=== PATIENT | female | born 1980 | race Caucasian/White ===

== ENCOUNTER → 2017-06-25 15:27 | Outpatient (CLI) | payer OTHER, SELFPAY ==
--- NOTE | 2017-06-25 15:31 | MRI_ITS ---
STUDY: MRI CERVICAL SPINE WITHOUT CONTRAST REASON FOR EXAM: Female, 36 years old. Neck pain TECHNIQUE: Standardized fat and water weighted pulse sequences were obtained in the sagittal and axial planes. COMPARISON: None FINDINGS: Normal foramen magnum and brainstem-cervical cord junction. Normal craniovertebral junction. Normal anterior atlantoaxial articulation. Normal odontoid process. Normal cervical lordosis. Normal vertebral bodies and posterior osseous elements. C2-3: Normal endplates. Normal disc height, signal and morphology. Normal central canal and intervertebral neural foramina. C3-4: Normal endplates. Normal disc height, signal and morphology. Normal central canal and intervertebral neural foramina. C4-5: Normal endplates. Normal disc height, signal and morphology. Normal central canal and intervertebral neural foramina. C5-6: Normal endplates. Normal disc height, signal and tiny right posterolateral disc protrusion. Normal central canal and intervertebral neural foramina. C6-7: Normal endplates. Normal disc height, signal and morphology. Normal central canal and intervertebral neural foramina. C7-T1: Normal endplates. Normal disc height, signal and morphology. Normal central canal and intervertebral neural foramina. Normal cervical cord. Normal visualized soft tissue structures. MRI/Spine Cervical (Routine) IMPRESSION: Tiny right posterolateral disc protrusion at C5-6 without significant spinal stenosis or cord compression Straightening of normal lordotic curvature which may be consistent with positioning artifact. No evidence for acute fracture.. Electronically Signed: Farhad Rm MD at 17:16 EDT , Service support ,
== END ==
PROVIDERS: Family Provider Nurse Practitioner Family; PCP Nurse Practitioner Family
DX: M47.812 Spondylosis without myelopathy or radiculopathy, cervical region (principal)
CPT/HCPCS: 72141

== ENCOUNTER → 2017-09-26 09:39 | Outpatient (CLI) | payer OTHER, SELFPAY ==
--- NOTE | 2017-09-26 09:41 | US_ITS ---
STUDY: ABDOMINAL ULTRASOUND - RIGHT UPPER QUADRANT REASON FOR VISIT: Female, 37 years old. Elevated liver enzymes. TECHNIQUE: Ultrasound evaluation of the right upper quadrant was performed with real-time and static barkley-scale imaging. TECHNICAL QUALITY: Adequate. COMPARISON: Comparison is made with prior study dated November 02, 2009. FINDINGS: Liver: The liver measures 16 point cm. There is increased echogenicity consistent with fatty infiltration. The bile ducts are within normal limits. There is hepatic color flow. The direction of portal flow is hepatopetal. There is no demonstrated mass lesion. Gallbladder: The patient is status post cholecystectomy. Common Bile Duct (C.B.D.): The common bile duct measures 3.8 mm. Pancreas: Normal size of the head, body and tail of the pancreas. There is normal echogenicity of the pancreas. There is no demonstrated pancreatic mass or cyst. Right Kidney: Normal size of the right kidney. The right kidney measures 12.2 cm x 4.4 cm x 5.5 cm. Normal renal cortex. The right cortex measures 1.9 cm. There is no demonstrated renal mass or cyst. There is no right hydronephrosis. US/Liver IMPRESSION: Fatty infiltration of the liver. Prior cholecystectomy. Electronically Signed: Jeramie Basilio MD at 14:25 EDT Tel [phone], Service support ,
== END ==
PROVIDERS: Family Provider Nurse Practitioner Family; PCP Nurse Practitioner Family; Visit Provider Internal Medicine Rheumatology
DX: R74.8 Abnormal levels of other serum enzymes (principal)
CPT/HCPCS: 76705

== ENCOUNTER → 2017-10-17 09:34 | Outpatient (CLI) | payer OTHER, SELFPAY ==
[2017-10-17 12:25] LABS: Color, Urine Yellow (Yellow); Glucose, Dipstick Normal (Normal); Ketone-Dipstick 5 mg/dl (Negative); Leukocyte Esterase-Dipstick 500 /ul (Negative); Nitrite-Dipstick Negative (Negative); Occult Blood-Urine Negative /ul (Negative); Protein-Dipstick 15 mg/dl (Negative); Specific Gravity, Urine 1.015 (1.002-1.030); Urine Bilirubin Dipstick Negative (Negative); Urine Clarity Sl. Cloudy (Clear); Urine Urobilinogen Normal (Normal); Urine pH 6.5 (5.0 - 8.0)
[2017-10-17 12:26] LABS: ALB/GLOB Ratio 1.1 RATIO (0.9-2.4); AST(SGOT) 29 U/L (15-37); Alanine Aminotransfer ALT/SGPT 47 U/L (13-56); Albumin, Serum 3.9 g/dL (3.2-5.0); Alkaline Phosphatase 70 U/L (45-117); Anion Gap 8 (5-15); BUN 11 mg/dL (7-18); BUN/Creat Ratio 14.3 RATIO (10-20); Calcium,Total 9.1 mg/dL (8.5-10.1); Chloride 107 mmol/L (98-107); Creatinine, Serum 0.77 mg/dL (0.55-1.02); EST Glomerular Filtration Rate 91 mL/min (>60); Est Glom Filt Rate - Afr Amer 110 mL/min (>60); Globulin 3.7 g/dL (2.2-4.2); Glucose 91 mg/dL (74-106); Potassium 3.5 mmol/L (3.5-5.1); Protein, Total 7.6 g/dL (6.4-8.2); Sodium Level 141 mmol/L (136-145)
[2017-10-17 12:37] LABS: Protein, Urine (Random) 29.2 mg/dL (<11.9); Protein:Creat Ratio 122 mg/g CRE (0-200)
== END ==
PROVIDERS: Family Provider Nurse Practitioner Family; PCP Nurse Practitioner Family; Visit Provider Internal Medicine Rheumatology
DX: M06.4 Inflammatory polyarthropathy (principal); M79.7 Fibromyalgia; M21.40 Flat foot [pes planus] (acquired), unspecified foot; K21.9 Gastro-esophageal reflux disease without esophagitis; G43.909 Migraine, unspecified, not intractable, without status migrainosus; F41.9 Anxiety disorder, unspecified; E28.2 Polycystic ovarian syndrome
CPT/HCPCS: 36415; 80053; 81002; 82570; 84156

== ENCOUNTER 2018-01-14 10:08 | Emergency (ER) | payer OTHER, SELFPAY ==
[2018-01-14 10:10] VITALS: BP 131/87; PULSE 91; RESP 18; TEMP 36.6; O2SAT 97; BMI 44.2
--- NOTE | 2018-01-14 10:41 | RAD_ITS ---
STUDY: X-RAY CHEST REASON FOR EXAM: Female, 37 years old. Productive cough. TECHNIQUE: PA and lateral views of the chest. COMPARISON: None. FINDINGS: The lungs are clear and expanded. There is no demonstrated pleural abnormality. Normal size heart. Normal mediastinum and starr. Normal visualized pulmonary arteries. Normal visualized aortic arch and descending thoracic aorta. Normal visualized thoracic spine. Normal visualized ribs, clavicles, and shoulders. There is no demonstrated abnormality of the visualized soft tissue structures of the upper abdomen. RAD/Chest PA and Lateral IMPRESSION: Normal x-ray examination of the chest. Electronically Signed: Jeramie Basilio MD at 11:24 EDT Tel [phone], Service support ,
--- NOTE | 2018-01-14 10:42 | ED.VISSUMM ---
- ER Visit Summary Date of Service: 01/14/18 Chief Complaint: Cough with green phlegm History of Present Illness: The patient is a 37 F history of rheumatoid arthritis, reflux, fibromyalgia, chronic pain and anxiety. Patient states since Friday she developed bilateral ear discomfort nasal congestion and a cough of greenish sputum. Also some nausea vomiting and diarrhea. She denies any fever. She denies any shortness of breath. She was treated by her nurse practitioner who put her on a Z-Clark. She states no chest x-ray was ever done. Physical Examination: Well-appearing young female. Vital signs are stable. Afebrile. Pulse ox 95% on room air no signs of hypoxia. No distress. H EENT exam TMs are normal bilaterally. Nasal congestion but no purulent discharge. No frontal maxillary sinus tenderness. Moist mucous membranes. Posterior pharynx normal. No erythema or exudate. Neck nontender no lymphadenopathy. Lungs clear to auscultation bilaterally. No rales, rhonchi or wheezing. Dry cough. Heart regular rate and rhythm no murmur. Abdomen peritoneal signs. She is moving all 4 extremities. They are neurovascularly intact. Calves are nontender without edema or cords. Back exam normal. Neurologically she is awake and alert with no focal motor deficits. Test Results: Patient requested a 2 view chest x-ray was performed showed no acute abnormality. Normal cardiac silhouette. Normal lung cadet. Emergency Department Course and Treatment: Patient's exam and history are consistent with a viral syndrome. I explained to her the Z-Clark that she is currently on will do nothing for a virus. Treatment Plan: Fluids and rest. Tylenol Motrin as needed. Follow-up with your doctor as needed. Disposition: Discharge Impression: Acute viral syndrome This note was generated with [employer] dictation software. It may contain incorrect words, spelling, and punctuation that were not noted in review of the chart prior to signing ED Disposition - Plan for ED Patient: Disposition: Home or Assisted Living Chief Complaint: General Illness Instructions: ED Viral Syndrome Referrals: Yasmin Krishna NP-C [Primary Care Provider] - 10-14 Days if not better Additional Instructions: Plenty of fluids and rest. Tylenol Motrin for body aches. Zofran as needed for nausea.
--- NOTE | 2018-01-14 10:45 | ED.DEP ---
ED Disposition - Plan for ED Patient: Disposition: Home or Assisted Living Chief Complaint: General Illness Instructions: ED Viral Syndrome Prescriptions: Ondansetron [Zofran Odt] 4 mg PO Q4H PRN PRN #7 tab.rapdis PRN Reason: Nausea Referrals: Yasmin Krishna, CAP JEWEL PLATE ASSEMBLER-C [Primary Care Provider] - 10-14 Days if not better Additional Instructions: Plenty of fluids and rest. Tylenol Motrin for body aches. Zofran as needed for nausea.
[2018-01-14] MEDS: Ondansetron ODT 4 MG Tablet PO (10:50)
--- NOTE | 2018-01-14 10:57 | DCINST.ED_ITS ---
ED Disposition - Plan for ED Patient: Disposition: Home or Assisted Living Chief Complaint: General Illness Instructions: ED Viral Syndrome Prescriptions: Ondansetron [Zofran Odt] 4 mg PO Q4H PRN PRN #7 tab.rapdis PRN Reason: Nausea Referrals: Yasmin Krishna, BREWING DIRECTOR-C [Primary Care Provider] - 10-14 Days if not better Additional Instructions: Plenty of fluids and rest. Tylenol Motrin for body aches. Zofran as needed for nausea.
[2018-01-14 11:33] VITALS: BP 117/81; PULSE 87; RESP 16; O2SAT 98
== END 2018-01-14 11:34 | disposition home or self-care (01) ==
LOC: ED 11:05
PROVIDERS: Emergency Provider Emergency Medicine; Family Provider Nurse Practitioner Family; PCP Nurse Practitioner Family
DX: B34.9 Viral infection, unspecified (principal); M06.9 Rheumatoid arthritis, unspecified; K21.9 Gastro-esophageal reflux disease without esophagitis; M79.7 Fibromyalgia; F41.9 Anxiety disorder, unspecified; G89.29 Other chronic pain; Z79.2 Long term (current) use of antibiotics; Z79.899 Other long term (current) drug therapy
CPT/HCPCS: 71046; 99283

== ENCOUNTER → 2018-03-04 14:15 | Outpatient (CLI) | payer OTHER, SELFPAY ==
--- NOTE | 2018-03-04 | EMB_PTH ---
PATIENT: MAGED CALLAWAY LOC: [facility] U#:[id number] AGE/SX: 44/F ROOM: RE03/04/[address]: Dr. Vj Alexander MD : 1980 BED: DIS: SPEC #: [id number] RECD: 03/04/18 15:46 STATUS: IBETH KRYSTAL #: [id number] EFFIE: 03/04/18 00:[address]: Vj Alexander DEPT: SURGICAL PATHOLOGY RECD BY: Rod Maldonado ENTERED: 03/05/18 08:00 SP TYPE: ENDOFernando BX/C SATHYA DR: Yasmin Krishna, RICK-C Tissues: Endometrium, NOS Procedures: Surgery Specimen Level IV HEADER OPERATION: Endometrial biopsy PRE-OP DIAGNOSIS: Menorrhagia TISSUE SUBMITTED: Endometrial biopsy MICROSCOPIC DIAGNOSIS Endometrium, biopsy: Secretory endometrium. AM:jace 03/06/18 MICROSCOPIC DESCRIPTION Slides are reviewed. GROSS DESCRIPTION Received is one container labeled with the patient's name and not further designated. The specimen consists of multiple irregular fragments of oeet-qka-jjlic mucoid tissue that in aggregate measure 3 x 1.2 x 0.2 cm. The specimen is totally submitted in one cassette. / RY:jace 03/05/18 TC:5 CPT: 66608
[2018-03-07 11:37] LABS: HPV Reflexed? NOT INDICATED
== END ==
PROVIDERS: Family Provider Nurse Practitioner Family; PCP Nurse Practitioner Family; Referring Provider Obstetrics & Gynecology; Visit Provider Obstetrics & Gynecology
DX: N92.0 Excessive and frequent menstruation with regular cycle (principal); Z12.4 Encounter for screening for malignant neoplasm of cervix
CPT/HCPCS: 87624; 88175; 88305; G0145

== ENCOUNTER → 2018-04-29 09:45 | Outpatient (CLI) | payer OTHER, SELFPAY ==
[2018-04-29 12:11] LABS: Absolute Lymphocyte Count 1.72 X10^3/ul (0.83-4.51); Absolute Neutrophil Count 3.1 X10^3/uL (2.0-7.7); Basophil# 0.03 X10^3/uL; Basophil% 0.6 % (0-1); Eosinophils% 1.9 % (0-5); Hematocrit 37.7 % (37-47); Hemoglobin 11.7 g/dl (12.0-15.0); Lymphocyte # 1.72 X10^3/ul (4.0); Lymphocyte % 31.9 % (19-41); Mean Corpuscular Hgb 24.6 pg (27.0-32.0); Mean Corpuscular Volume 79.2 fL (81-99); Mean Platelet Vol. 12.3 fl (6.2-12.0); Monocyte# 0.47 X10^3/uL; Monocyte% 8.7 % (0-10); Neutrophil # 3.07 X10^3/uL (2.7-7.7); Neutrophil % 56.7 % (47-70); Platelet Count 294 K/mm3 (150-450); RBC Distribution Width CV 15.7 % (11.6-14.6); RBC Distribution Width SD 44.5 fl (35.1-43.9); Red Blood Count 4.76 M/mm3 (4.2-5.4); White Blood Count 5.4 K/mm3 (4.4-11.0)
[2018-04-29 12:16] LABS: POSITIVE COUNT NO; POSITIVE DIFFERENTIAL NO; POSITIVE MORPHOLOGY NO
[2018-04-29 12:25] LABS: AST(SGOT) 17 U/L (15-37); Alanine Aminotransfer ALT/SGPT 35 U/L (13-56); Albumin, Serum 3.8 g/dL (3.2-5.0); Alkaline Phosphatase 75 U/L (45-117); Anion Gap 6 (5-15); BUN 13 mg/dL (7-18); BUN/Creat Ratio 17.5 RATIO (10-20); Calcium,Total 8.8 mg/dL (8.5-10.1); Chloride 108 mmol/L (98-107); Creatinine, Serum 0.74 mg/dL (0.55-1.02); EST Glomerular Filtration Rate 94 mL/min (>60); Est Glom Filt Rate - Afr Amer 114 mL/min (>60); Globulin 3.7 g/dL (2.2-4.2); Glucose 100 mg/dL (74-106); Potassium 3.6 mmol/L (3.5-5.1); Protein, Total 7.5 g/dL (6.4-8.2); Sodium Level 140 mmol/L (136-145)
== END ==
PROVIDERS: Family Provider Family Medicine; PCP Family Medicine; Referring Provider Internal Medicine Rheumatology; Visit Provider Internal Medicine Rheumatology
DX: M06.4 Inflammatory polyarthropathy (principal); M79.7 Fibromyalgia; K76.0 Fatty (change of) liver, not elsewhere classified; M21.40 Flat foot [pes planus] (acquired), unspecified foot; K21.9 Gastro-esophageal reflux disease without esophagitis; G43.909 Migraine, unspecified, not intractable, without status migrainosus; F41.9 Anxiety disorder, unspecified; E28.2 Polycystic ovarian syndrome
CPT/HCPCS: 36415; 80053; 85025

== ENCOUNTER → 2018-05-06 16:36 | Outpatient (CLI) | payer OTHER, SELFPAY ==
--- NOTE | 2018-05-06 16:43 | RAD_ITS ---
STUDY: X-RAY CHEST REASON FOR EXAM: Female, 37 years old. Rheumatoid arthritis TECHNIQUE: Frontal and lateral views COMPARISON: January 14, 2018. FINDINGS: The lungs are clear and expanded. There is no demonstrated pleural abnormality. Normal size heart. Normal mediastinum and starr. Normal visualized pulmonary arteries. Normal visualized aortic arch and descending thoracic aorta. Normal visualized thoracic spine. Normal visualized ribs, clavicles, and shoulders. There is no demonstrated abnormality of the visualized soft tissue structures of the upper abdomen. RAD/Chest PA and Lateral IMPRESSION: Normal x-ray examination of the chest. Electronically Signed: William Mariee DO at 22:54 EST Tel [phone], Service support ,
[2018-05-08 20:08] LABS: QNTFERON TB Mitogen Value > 10.00 IU/mL (.); QNTFERON TB Nil Value 0.02 IU/mL (.); QNTFERON TB1+ Ag Value 0.03 IU/mL (.); QNTFERON TB2+ Ag Value 0.02 IU/mL (.)
[2018-05-09 11:09] LABS: QNTIFERON TB Positive Criteria Negative (Negative)
== END ==
PROVIDERS: Family Provider Family Medicine; PCP Family Medicine; Referring Provider Internal Medicine Rheumatology; Visit Provider Internal Medicine Rheumatology
DX: M06.09 Rheumatoid arthritis without rheumatoid factor, multiple sites (principal); M79.7 Fibromyalgia; K76.0 Fatty (change of) liver, not elsewhere classified; M21.40 Flat foot [pes planus] (acquired), unspecified foot; K21.9 Gastro-esophageal reflux disease without esophagitis; G43.909 Migraine, unspecified, not intractable, without status migrainosus; F41.9 Anxiety disorder, unspecified; E28.2 Polycystic ovarian syndrome
CPT/HCPCS: 36415; 71046; 86480

== ENCOUNTER 2018-06-22 05:55 | Day surgery (SDC) | payer OTHER, SELFPAY ==
--- NOTE | 2018-06-17 16:38 | EKG12_ITS ---
Test Reason : PRE OP Blood Pressure : / mmHG Vent. Rate : 078 BPM Atrial Rate : 078 BPM P-R Int : 152 ms QRS Dur : 102 ms QT Int : 400 ms P-R-T Axes : 048 028 052 degrees QTc Int : 456 ms Normal sinus rhythm Incomplete right bundle branch block Borderline ECG No previous ECGs available Confirmed by MADAY BLOUNT, MAYRA ([id number]), magazine editor RADHA ARTEAGA ([id number]) on 06/19/2018 9:41:45 AM Referred By: Vj Alexander Confirmed By:MAYRA NASSAR MD
[2018-06-17 17:34] LABS: Hematocrit 37.9 % (37-47); Hemoglobin 11.5 g/dl (12.0-15.0); Mean Corp Hgb Conc 30.3 g/gl (32-36); Mean Platelet Vol. 11.9 fl (6.2-12.0); Platelet Count 290 K/mm3 (150-450); RBC Distribution Width CV 16.3 % (11.6-14.6); RBC Distribution Width SD 46.3 fl (35.1-43.9); White Blood Count 5.6 K/mm3 (4.4-11.0)
[2018-06-17 17:50] LABS: Scan Indicated on CBC? Y/N NO
[2018-06-17 17:51] LABS: International Normalized Ratio 1.1; Prothrombin Time (Protime)PT. 13.8 SECONDS (11.7-14.9)
[2018-06-17 17:52] LABS: Partial Thromboplast Time 37.4 Seconds (24.1-36.2)
[2018-06-17 18:37] LABS: Pregnancy, Serum, hCG Quali. NEGATIVE Negative (0-9 Nonpreg)
[2018-06-17 18:45] LABS: Thyroid Stim Hormone (TSH) 1.62 uIU/mL (0.358-3.74)
--- NOTE | 2018-06-19 16:10 | HP.PCM_ITS ---
History and Physical Date of Admission: 06/22/18 Surgical History and Physical Nichole Frias, a 37 year old female 1 0 0 0 1, presents for D and C, hysteroscopy, L/S bilateral salpingectomy and HTA on June 22, 2018 at 7:30. -- Menorrhagia; Desires Sterilization -- Irregular and heavy menstrual cycles. Nichole claims it is getting progressively getting worse. It occurs monthly. It is located in the uterus. It is aggravated by intercourse and tampons are uncomfortable. Additional comments are: extremely heavy menses and just wants it to stop. MEDICATIONS HISTORY: Patient is also takin. Cymbalta 30 mg capsule,delayed release, One pill by mouth once a day 2. Plaquenil 200 mg tablet, One pill by mouth once a day 3. Prilosec OTC 20 mg tablet,delayed release, 40mg once daily 4. Topamax 50 mg tablet, Two in am One in pm ALLERGIES: NKDA, Augmentin, Rash, itching, Skelaxin, Pain and abdomen Infections - Chicken pox Illnesses - depression, buldging disk in back Accidents - no injuries of consequence Hospitalizations - see surgery Review of Systems: GENERAL - Denies fever, or chills SKIN - Denies skin changes EYES - Denies visual changes EARS - Denies difficulty hearing NOSE - Denies nasal congestion or bleeding MOUTH - Denies sore throat or difficulty swallowing NECK - Denies pain or swelling RESPIRATORY - Denies shortness of breath or wheezing CARDIOVASCULAR - Denies palpitations or chest pain GASTROINTESTINAL - Denies nausea, vomiting, diarrhea, constipation GENITOURINARY - Denies dysuria, frequency of urination, incontinence of urine MUSCULOSKELETAL - Denies joint or muscle pain NEUROLOGICAL - Denies localized numbness or weakness PSYCHIATRIC - Denies depression or anxiety ENDOCRINE - Denies heat or cold intolerance, weight loss or gain HEMATO-IMMUNOLOGIC - Denies excesive bleeding with cuts SOCIAL HISTORY: Alcohol Use - drinks occasionally Smoking - denies smoking Diet - balanced Diet Lifestyle - moderate stress lifestyle and Exercise - Walking at least one mile daily Seat Belt Use - always Employer - [employer]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 Maternal Grandfather: Lung Cancer. Paternal Aunt: Colon Cancer. MENSTRUAL HISTORY: LMP Known?- DefiniteAmount/Duration - 6 days, Regularity - Regular, Frequency - monthly days, LMP - 06/04/18 PAST PREGNANCIES: Total Pregnancies - 1; Full Term Pregnancies - 1; Premature - 0; Abortions, Induced - 0; Abortions, Spontaneous - 0; Ectopics - 0; Multiple Births - 0; Living Children - 1 SURGICAL HISTORY: 1. Breast Reduction 03/06 ; Dr. Waddell - Pain/Discomfort 2. 12/14/2009 cholecystectomy ; Celio Rubio - 3. 2013 Back Surgery PHYSICAL EXAM BP- 116/72 Sitting, Right arm, large cuff Weight- 270.22604 lbs Height- 64 inch BMI:46.44 CONSTITUTIONAL - NAD, well nourished, and well developed SKIN - No rash, lesions, or ulcers HEENT - Normocephalic, PERRLA, EOMI NECK - No nodes, no nuchal rigidity and thyroid normal size and texture LYMPH NODES - Palpation of lymph nodes in neck and groins within normal limits LUNGS - CTA x2 without wheezes, crackles or rales CARDIAC - Regular rate and rhythm without rubs, murmurs, or gallops ABDOMEN - Without hepatosplenomegaly, distention, masses, rebound, or guarding; normal bowel sounds; no hernias EXTREMITIES - No edema or calf tenderness NEUROLOGICAL - Cranial nerves II-XII grossly intact PSYCHIATRIC - A and O to time, place, person, mood and affect DETAILED PELVIC EXAM External Genitial Vagina - non-tender without lesions Urethra/Urethral Meatus - non-tender Bladder - non-tender Vagina - vaginal whiteside are pink and moist without loss of rugae and no evidence of atropy Cervix - without cervical motion tenderness and has normal size and features without evident lesions; if hyst necessary RAVH would be beneficial as cervix is high in vagina Uterus - multiparous size 6 cm & wt 75-125 g Adnexa - clear without masses or tenderness ASSESSMENT/PLAN: 1. Menorrhagia and Premenstrual Tension Syndromes Discussed options for treatment and pt desires proceeding with ablation and tubal. Discussed RBAs and all questions answered. Cannot tolerate oral OCPs.
[2018-06-22] VITALS (8 sets, daily range): BP systolic 105–136; BP diastolic 68–92; PULSE 85–95; RESP 16–18; TEMP 36.2–37.1; O2SAT 94–100; BMI 46.4
[2018-06-22 06:42] LABS: Internal QC Validated? YES +Cl - CLEAR BKGD; Pregnancy, Urine Negative Negative
--- NOTE | 2018-06-22 07:30 | EMB_PTH ---
PATIENT: MAGED CALLAWAY LOC: [facility] – [place] U#:[id number] AGE/SX: 37/F ROOM: RE06/22/[address]: Dr. Vj Alexander MD : 1980 BED: DIS: 06/22/2018 SPEC #: [id number] RECD: 06/22/18 09:41 STATUS: IBETH KRYSTAL #: [id number] EFFIE: 06/22/18 07:[address]: Vj Alexander DEPT: SURGICAL PATHOLOGY RECD BY: Rod Maldonado ENTERED: 06/22/18 13:06 SP TYPE: ENDOM BX/C SATHYA DR: Dr. Michael Clark MD Tissues: A - Endometrium, NOS B - Fallopian tube C - Skin of leg, NOS Procedures: Surgery Specimen Level II Surgery Specimen Level III Surgery Specimen Level IV HEADER OPERATION: Hysteroscopy, dilation and curettage, hydrothermal ablation PRE-OP DIAGNOSIS: Menorrhagia and premenstrual tension syndrome TISSUE SUBMITTED: A -Endometrial curettings, B - Bilateral fallopian tubes, C - Skin tags right inner thigh MICROSCOPIC DIAGNOSIS A. Endometrial curettings: Weakly proliferative endometrium with glandular and stromal breakdown. Fragments of benign endocervical mucosa with acute and chronic inflammation. B. Bilateral fallopian tubes, salpingectomy: Bilateral fallopian tubes including fimbrial end, in multiple pieces, no pathologic diagnosis. C. Skin tags right inner thigh, biopsy: Fibroepithelial polyps x2 (skin tags). MELIZA:jace 06/23/18 COMMENT Please make reference to previous specimen ([id number]) endometrium, biopsy with diagnosis of secretory endometrium. MICROSCOPIC DESCRIPTION Slides are reviewed. GROSS DESCRIPTION A - Received in fixative is one container labeled with the patient's name and designated endometrial curettings. The specimen consists of multiple fragments of hemorrhagic soft tissue that in aggregate measure 3 x 2.5 x 0.3 cm. The specimen is totally submitted in one cassette. B - Received is one container labeled with the patient's name and designated bilateral fallopian tubes. The specimen consists of bilateral fallopian tubes in four pieces. One of the pieces consists of fimbrial end measuring 2.5 cm in length and 0.5 cm in diameter. The second piece only consists of entirely fimbrial end measuring 2 x 1 x 0.5 cm. Two pieces without fimbrial ends measure 3 cm in length and 0.5 cm in diameter and 4 cm in length and 0.5 cm in diameter. Sections reveal unremarkable cut surfaces. Truck Headlight Assembler sections from all four pieces are submitted in two cassettes. C - Received in fixative is one container labeled with the patient's name and designated skin tags right inner thigh. The specimen consists of two polypoid pieces of prasad-white skin measuring 1 x 0.6 x 0.3 cm and 0.3 x 0.2 x 0.1 cm. The larger piece is bisected. The entire specimen is submitted in one cassette. / MELIZA:jace 06/22/18 TC:5 CPT: 21508, 77165, 42327 x2
--- NOTE | 2018-06-22 07:30 | PCM.OPRPT ---
Report of Operation Date of Procedure: 06/22/18 Pre-Operative Diagnosis: Menorrhagia, Desires Sterilization Post-Operative Diagnosis: Menorrhagia, Desires Sterilization Surgery/Procedure Performed:: Diagnostic Hysteroscopy, D&C, Hydrothermal Ablation, Bilateral Laparoscopic Salpingectomy, Lysis of Adhesions, Skin Tag Removal Description of Surgical Findings:: 8 cm plush endometrial cavity, normal pelvis except for adhesions of omentum to left pelvic sidewall. Cervix is high in vagina which would make vaginal hysterectomy without robotic assistance difficult if this were ever necessary. Two 0.25 cm skin tags right inner thigh. product safety technical assistant: Alicja Levi Type of Anesthesia:: General - Endotracheal Anesthesiologist: Hernesto Hanna Specimen's removed: Endometrial curettings, bilateral fallopian tubes, left thigh skin tags Drains: None Estimated Blood Loss (mL): Minimal Fluids Replaced: Crystalloid Description of Procedure: Surgeon: Vj Alexander MD, FACOG Indication: This is a 37 year old patient who has been having problems with extremely heavy menses. She also desires permanent sterilization. Conservative measures have not been helpful. Endometrial sampling was benign and pelvic ultrasound showed that ablation may be helpful. Pt has been counseled regarding the risks, benefits and alternatives of this procedure and all questions answered. She understands that only about half of patients will have amenorrhea after this procedure. She also understands the permanent nature of her tubal as well as the failure rate of 1-2%. All questions were answered we consider the patient well-informed. Procedure: Patient taken to the operating room where after induction of general anesthesia the patient was prepped and draped in the usual sterile fashion. Bladder was drained of urine with a catheter. Anterior cervix was grasped and cervix was dilated to about 17 Telugu size. Hysteroscopic hydrothermal ablation (HTA) unit was place in the cervix and the above findings were noted. HTA unit was removed and the uterus was gently curretted removing all contents. An HTA ablation cycle was then carried out at about 90 degrees Centigrade for 10 minutes with virtually no fluid loss during the procedure. After an appropriate cool down the HTA unit was removed with minimal bleeding noted. Skin tags on the right thigh were removed with the scissors and the small amount of bleeding encountered was stopped with silver nitrate along with Steri-Strips. Conn cannula was placed in the cervix and attention was turned toward the laparoscopic portion of the procedure. Approximately 30 cc of half percent ropivacaine was injected subumbilically suprapubically and midway between. A 5 mm bladeless trocar was placed subumbilically and intraperitoneal placement confirmed. After CO2 insufflation was complete, a 5 mm bladeless trocar was introduced suprapubically. The above findings were noted. A 5 millimeter port was eventually placed midway between these 2 ports for tubal manipulation. Each fallopian tube was identified to its fimbriated end and an Enseal device was used to divide the mesosalpinx leaving approximately 0.25 cm stump of fallopian tube on each side. Some adhesions in the left adnexal area between the omentum and pelvic sidewall were taken down with the Enseal device. The peritoneal cavity and upper abdomen were examined and noted to be normal. Photographs were taken. Laparoscopic instruments with as much CO2 gas as possible were removed and incisions were closed with interrupted 4-0 Monocryl suture. Steri-Strips placed across the incision. Vaginal instruments were removed. Patient tolerated procedure well was taken to recovery room in satisfactory condition sponge instrument and needle counts were all reportedly correct. Estimated blood loss for the case was minimal. Specimens to pathology were endometrial curettings and bilateral fallopian tubes. Grafts/Implants Used: None - Complications None - Admit VTE Documentation VTE Present on Admission: Yes VTE Mechan Device Prophylaxis: SCD's VTE Pharm Prophylaxis ordered?: No Reason prophylaxis not ordered:: Treatment Not Indicated
--- NOTE | 2018-06-22 07:34 | PCM.DC.TUB ---
Discharge Diet: No Restrictions - Increase fluid intake for the next 48 hours. Discharge Activity: Return to Normal Activity, May Drive - when you are no longer taking pain/narcotic medicines., May Shower, May Take a Tub Bath - in 7 days. Additional Activity Instructions:: Ambulate often the next week after surgery. Nothing in the vagina for 5 days. Call your doctor if your incision/area has: Continuous Slow Oozing, Sudden Increased Bleeding, Increased Pain/ Swelling, Increased Redness, Foul Smelling Discharge Call your doctor if you observe: Fever of 101 or Higher, Inability to urinate, Inability to have a bowel movement, Using more than one pad per hour Allergies/Adverse Reactions: Allergies metaxalone [From Skelaxin] Allergy (Verified 06/22/18 06:42) Unknown sumatriptan [From Imitrex] Allergy (Verified 06/22/18 06:42) Unknown amoxicillin [From Augmentin] Adverse Reaction (Verified 06/22/18 06:42) Nausea/Vom/Diarrhea clavulanic acid [From Augmentin] Adverse Reaction (Verified 06/22/18 06:42) Nausea/Vom/Diarrhea Medications to take at Discharge Duloxetine HCl 60 mg PO DAILY 01/14/18 Hydroxychloroquine [Plaquenil] 200 mg PO BID 01/14/18 Omeprazole 40 mg PO DAILY 01/14/18 Topiramate [Topamax] 50 mg PO QHS 01/14/18 Topiramate [Topamax] 100 mg PO DAILY 01/14/18 Biocleanse 1 cap PO DAILY 06/15/18 Lactobacillus Acidophilus [Probiotic] 1 each PO BID 06/15/18 Vitobio Complex 1 cap PO DAILY 06/15/18 Hydrocodone/Acetaminophen [Silva 5-325 Tablet] 1 ea PO Q6H PRN PRN 7 Days #10 tab 06/22/18 The following prescriptions were given: Hydrocodone/Acetaminophen [Silva 5-325 Tablet] 1 ea PO Q6H PRN PRN 7 Days #10 tab PRN Reason: Severe Pain (6-10/10) Orders to be completed after discharge: 12 Lead EKG [CVS] Time Frame: 06/15/18, Facility: [facility], Location: Cardiovascular Services Basic Metabolic Profile (BMP) Time Frame: 06/15/18, Location: Laboratory CBC-Complete Blood Cnt No Diff Time Frame: 06/15/18, Location: Laboratory Primary Care Physician: Michael Clark MD [Primary Care Provider] - Test Results: Test results from this visit will be discussed in further detail at your follow-up appointment, if applicable. Please Follow Up With: Vj Alexander MD - [phone] When: 2-3 weeks
[2018-06-22] MEDS: Silver Nitrate (BKC) 1 EACH (08:13)
[2018-06-22] MEDS: Ropivacaine 0.5% 30 ML Vial (08:16)
[2018-06-22] MEDS: HYDROcodone Bitartrate/Apap 5/325 Tablet PO (11:14)
== END 2018-06-22 11:46 | disposition home or self-care (01) ==
LOC: SDC 05:56 → AC 05:57
PROVIDERS: Anesthesiology; Family Provider Family Medicine; PCP Family Medicine; Referring Provider Obstetrics & Gynecology; Visit Provider Obstetrics & Gynecology
PROC: 0UDB8ZZ Extraction of Endometrium, Via Natural or Artificial Opening Endoscopic (ICD-10-PCS; CPT 58558; principal; 2018-06-22 07:15)
PROC: (CPT 58661; 2018-06-22 07:15)
DX: N71.0 Acute inflammatory disease of uterus (principal); N71.1 Chronic inflammatory disease of uterus; L91.8 Other hypertrophic disorders of the skin; N94.3 Premenstrual tension syndrome; Z30.2 Encounter for sterilization; K21.9 Gastro-esophageal reflux disease without esophagitis; F41.9 Anxiety disorder, unspecified; F32.9 Major depressive disorder, single episode, unspecified; M06.9 Rheumatoid arthritis, unspecified; Z79.899 Other long term (current) drug therapy
CPT/HCPCS: 00840; 11200; 58558; 58661; 36415; 81025; 84443; 84703; 85027; 85610; 85730; 86850; 86900; 88302; 88304; 88305; 93005; J7120; C1760; J2405; J3475

== ENCOUNTER → 2019-05-10 | Outpatient (CLI) | payer OTHER, SELFPAY ==
[2018-06-22 06:44] VITALS: BMI 46.4
[2019-05-10 12:20] LABS: Absolute Lymphocyte Count 1.65 X10^3/uL (0.83-4.51); Absolute Neutrophil Count 3.1 X10^3/uL (2.0-7.7); Basophil# 0.03 X10^3/uL; Basophil% 0.6 % (0-1); Eosinophil# 0.04 X10^3/uL; Eosinophils% 0.8 % (0-5); Hematocrit 39.2 % (37-47); Hemoglobin 11.7 g/dL (12.0-15.0); Lymphocyte # 1.65 X10^3/ul (4.0); Lymphocyte % 31.1 % (19-41); Mean Corp Hgb Conc 29.8 g/dL (32-36); Mean Corpuscular Volume 80.5 fL (81-99); Mean Platelet Vol. 12.2 fl (6.2-12.0); Monocyte# 0.46 X10^3/uL; Monocyte% 8.7 % (0-10); NRBC Flagged by Analyzer 0 % (0-5); Neutrophil # 3.11 X10^3/uL (2.7-7.7); Neutrophil % 58.6 % (47-70); Platelet Count 282 K/mm3 (150-450); RBC Distribution Width CV 16.4 % (11.6-14.6); RBC Distribution Width SD 46.5 fl (35.1-43.9); Red Blood Count 4.87 M/mm3 (4.2-5.4); White Blood Count 5.3 K/mm3 (4.4-11.0)
[2019-05-10 12:37] LABS: Vitamin D,25 Hydroxy 19.5 ng/mL (29.95-100.01)
[2019-05-10 12:51] LABS: ALB/GLOB Ratio 1.1 RATIO (0.9-2.4); AST(SGOT) 23 U/L (15-37); Alanine Aminotransfer ALT/SGPT 39 U/L (13-56); Alkaline Phosphatase 67 U/L (45-117); Anion Gap 6 (5-15); BUN 11 mg/dL (7-18); BUN/Creat Ratio 12.8 RATIO (10-20); Calcium,Total 9.5 mg/dL (8.5-10.1); Chloride 109 mmol/L (98-107); Creatinine, Serum 0.86 mg/dL (0.55-1.02); EST Glomerular Filtration Rate 79 mL/min (>60); Est Glom Filt Rate - Afr Amer 95 mL/min (>60); Ferritin 5 ng/mL (8-252); Globulin 3.6 g/dL (2.2-4.2); Glucose 108 mg/dL (74-106); Iron 30 ug/dL (50-170); Potassium 3.7 mmol/L (3.5-5.1); Protein, Total 7.6 g/dL (6.4-8.2); Sodium Level 140 mmol/L (136-145)
== END | disposition home or self-care (01) ==
LOC: BFHLAB 08:52
PROVIDERS: PCP Family Medicine; Visit Provider Family Medicine
DX: D64.9 Anemia, unspecified (principal); M06.9 Rheumatoid arthritis, unspecified; M79.7 Fibromyalgia
CPT/HCPCS: 36415; 80053; 82306; 82728; 83540; 85025

== ENCOUNTER → 2019-10-22 | Outpatient (CLI) | payer OTHER, SELFPAY ==
[2018-06-22 06:44] VITALS: BMI 46.4
== END | disposition home or self-care (01) ==
LOC: PR 11:01
PROVIDERS: PCP Family Medicine; Visit Provider Family Medicine
DX: M54.5 Low back pain (principal); R82.81 Pyuria
CPT/HCPCS: 87086; 87088

== ENCOUNTER → 2019-10-22 | Outpatient (CLI) | payer OTHER, SELFPAY ==
[2018-06-22 06:44] VITALS: BMI 46.4
[2019-10-22 15:27] LABS: Absolute Lymphocyte Count 1.97 X10^3/uL (0.83-4.51); Absolute Neutrophil Count 3.1 X10^3/uL (2.0-7.7); Basophil# 0.03 X10^3/uL; Basophil% 0.5 % (0-1); Eosinophil# 0.15 X10^3/uL; Eosinophils% 2.6 % (0-5); Hematocrit 40.3 % (37-47); Hemoglobin 11.9 g/dL (12.0-15.0); Lymphocyte # 1.97 X10^3/ul (4.0); Lymphocyte % 34.4 % (19-41); Mean Corp Hgb Conc 29.5 g/dL (32-36); Mean Corpuscular Hgb 23.5 pg (27.0-32.0); Mean Corpuscular Volume 79.5 fL (81-99); Mean Platelet Vol. 11.9 fl (6.2-12.0); Monocyte# 0.44 X10^3/uL; Monocyte% 7.7 % (0-10); NRBC Flagged by Analyzer 0 % (0-5); Neutrophil # 3.12 X10^3/uL (2.7-7.7); Neutrophil % 54.5 % (47-70); Platelet Count 320 K/mm3 (150-450); RBC Distribution Width SD 45.2 fl (35.1-43.9); Red Blood Count 5.07 M/mm3 (4.2-5.4); White Blood Count 5.7 K/mm3 (4.4-11.0)
[2019-10-22 15:52] LABS: ALB/GLOB Ratio 1.2 RATIO (0.9-2.4); AST(SGOT) 35 U/L (15-37); Alanine Aminotransfer ALT/SGPT 49 U/L (13-56); Alkaline Phosphatase 65 U/L (45-117); Anion Gap 5 (5-15); BUN 12 mg/dL (7-18); BUN/Creat Ratio 15.6 RATIO (10-20); Calcium,Total 8.9 mg/dL (8.5-10.1); Chloride 107 mmol/L (98-107); Creatinine, Serum 0.77 mg/dL (0.55-1.02); EST Glomerular Filtration Rate 89 mL/min (>60); Est Glom Filt Rate - Afr Amer 108 mL/min (>60); Ferritin 6 ng/mL (8-252); Globulin 3.4 g/dL (2.2-4.2); Glucose 100 mg/dL (74-106); Iron 58 ug/dL (50-170); Magnesium 2.2 mg/dL (1.6-2.6); Potassium 3.6 mmol/L (3.5-5.1); Protein, Total 7.4 g/dL (6.4-8.2); Sodium Level 138 mmol/L (136-145); Thyroid Stim Hormone (TSH) 1.34 uIU/mL (0.358-3.74)
[2019-10-22 15:54] LABS: Vitamin B12 359 pg/mL (211-911); Vitamin D,25 Hydroxy 24.7 ng/mL
== END | disposition home or self-care (01) ==
LOC: BFHLAB 11:28
PROVIDERS: PCP Family Medicine; Visit Provider Family Medicine
DX: D64.9 Anemia, unspecified (principal); E55.9 Vitamin D deficiency, unspecified; R73.01 Impaired fasting glucose; R00.2 Palpitations; M06.9 Rheumatoid arthritis, unspecified
CPT/HCPCS: 36415; 80053; 82306; 82607; 82728; 83540; 83735; 84439; 84443; 85025

== ENCOUNTER → 2019-12-07 | Outpatient (CLI) | payer OTHER, SELFPAY ==
[2018-06-22 06:44] VITALS: BMI 46.4
== END | disposition home or self-care (01) ==
LOC: MTDU 12-10 14:03
PROVIDERS: PCP Family Medicine
DX: Z00.00 Encounter for general adult medical examination without abnormal findings (principal)
CPT/HCPCS: 87635; C9803; U0003

== ENCOUNTER → 2020-02-04 15:27 | Outpatient (CLI) | payer OTHER, SELFPAY ==
[2018-06-22 06:44] VITALS: BMI 46.4
[2020-02-04 17:21] LABS: Absolute Lymphocyte Count 2.02 X10^3/uL (0.83-4.51); Absolute Neutrophil Count 4.1 X10^3/uL (2.0-7.7); Basophil# 0.04 X10^3/uL; Basophil% 0.6 % (0-1); Eosinophil# 0.14 X10^3/uL; Hematocrit 38.9 % (37-47); Hemoglobin 11.5 g/dL (12.0-15.0); Lymphocyte # 2.02 X10^3/ul (4.0); Lymphocyte % 29.5 % (19-41); Mean Corp Hgb Conc 29.6 g/dL (32-36); Mean Corpuscular Hgb 23.9 pg (27.0-32.0); Mean Corpuscular Volume 80.7 fL (81-99); Mean Platelet Vol. 11.8 fl (6.2-12.0); Monocyte# 0.57 X10^3/uL; Monocyte% 8.3 % (0-10); NRBC Flagged by Analyzer 0 % (0-5); Neutrophil # 4.06 X10^3/uL (2.7-7.7); Neutrophil % 59.5 % (47-70); Platelet Count 341 K/mm3 (150-450); RBC Distribution Width CV 15.9 % (11.6-14.6); Red Blood Count 4.82 M/mm3 (4.2-5.4); White Blood Count 6.8 K/mm3 (4.4-11.0)
[2020-02-04 17:45] LABS: Erythrocyte Sedimentation Rate 9 mm/hr (0-20)
[2020-02-04 18:03] LABS: ALB/GLOB Ratio 1.1 RATIO (0.9-2.4); AST(SGOT) 16 U/L (15-37); Alanine Aminotransfer ALT/SGPT 32 U/L (13-56); Albumin, Serum 3.8 g/dL (3.2-5.0); Alkaline Phosphatase 59 U/L (45-117); Anion Gap 6 (5-15); BUN 11 mg/dL (7-18); BUN/Creat Ratio 13.2 RATIO (10-20); CRP 7.41 mg/L (0.0-3.0); Calcium,Total 9.1 mg/dL (8.5-10.1); Chloride 107 mmol/L (98-107); Creatinine, Serum 0.84 mg/dL (0.55-1.02); EST Glomerular Filtration Rate 81 mL/min (>60); Est Glom Filt Rate - Afr Amer 99 mL/min (>60); Globulin 3.4 g/dL (2.2-4.2); Glucose 81 mg/dL (74-106); Potassium 3.6 mmol/L (3.5-5.1); Protein, Total 7.2 g/dL (6.4-8.2); Sodium Level 140 mmol/L (136-145)
[2020-02-08 16:08] LABS: QNTFERON TB Mitogen Value > 10.00 IU/mL (.); QNTFERON TB Nil Value 0.03 IU/mL (.); QNTFERON TB1+ Ag Value 0.03 IU/mL (.); QNTFERON TB2+ Ag Value 0.03 IU/mL (.)
[2020-02-08 22:18] LABS: QNTIFERON TB Positive Criteria Negative (Negative)
== END ==
PROVIDERS: PCP Family Medicine; Referring Provider Internal Medicine Rheumatology; Visit Provider Internal Medicine Rheumatology
DX: M06.09 Rheumatoid arthritis without rheumatoid factor, multiple sites (principal); M79.7 Fibromyalgia; K76.0 Fatty (change of) liver, not elsewhere classified; M21.40 Flat foot [pes planus] (acquired), unspecified foot; Z79.899 Other long term (current) drug therapy
CPT/HCPCS: 36415; 80053; 85025; 85652; 86140; 86480

== ENCOUNTER 2020-06-13 17:00 | Outpatient (RCR) | payer OTHER, SELFPAY ==
--- NOTE | 2020-04-25 18:57 | HP.PTEVAL_ITS ---
Patient's Visit Information MAGED CALLAWAY is a 39 year old F referred to Physical Therapy by Dr. Ciera Harris DO with a diagnosis of R shoulder labral tear RCT adn biceps tendonitis.. Date of Evaluation: 04/25/20 Physical Therapist: Melquiades Pickett, DPT, OCS, CSCS - Visit Plan Frequency: 2-3x /Week Duration: 4-6 Weeks Plan: 2-3x/week for 4-6 weeks. Please start with two weeks of BOLA[place]OS nonthermal to R biceps tendon, manual therapy grade 1 mobs R shoulder., Neck ROM to end extension adn postural correction along with ensuring activitiy mdoification of R shoulder, TENS with ice if painful at rest. Progress to RC strengthening and postural strengthening as pain diminishes. - Subjective My shoulder hurt,maybe due to fall back in December. Eventully kept her up at night. Then could not do soem things at work. Then often pain and cannot put things in back seat of car. Not sure what started it. Fall was a trip. R shoulder and pain is anterior, sometimes underneath adn into biceps. X ray and MRI and then sent to [facility]. Has a complete labrum tear adn partial RCT. Got injection and had reaction and 11/10 pain and was 8/10 on some days and worse with reaching. At rest is about a 2/10. Gets cold sensation in R fingers 2-5. Sometimes gets tingling in those fingers also. Sleep: is interrupted, throbs and hard to get comfy. 6-8/10. Sleeps on side if she can,used to be R side but cannot anymore. Sometimes on back with blanket under R shoulder. About an hour at a time. 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 Hurts all day adn limited mobility and getting things off shelves, does it but it hurts. 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 Bassics:modified dressing and hurts at ties, hair is getting harder. Hobbies: shopping, friends , ATV, has not been able to due to fatigue from not sleeping. - Pain R shoulder Pain Intensity (Out of 10): 2 Pain Intensity Range: 2, 10 - Objective Posture is forward head and shoulders, slightly elevated R scap. Tender over biceps tendon and supraspinatus insertion mod. Cervical AROM is near full with some minor central neck discomfort at end of extension. + neer R, + HK R,. + empty can and speeds test. Good scapular mobility without pain. Full g-h mobility R with some increased pain end of IR adn flexion/abduction. reflexes 2/3 bi and tri. Sensation wNL B UE to gross light touch. Weakness in shoulder elevation due to pain and slight deficit R tricep vs L, otherwise decent strength 4- in rotations and biceps without excessive pain or asyymetry. Hand and wrist movement is symmetrical and without pain. - Goals Goal 1:: Full cervical and shoulder AROM without pain end ranges. Goal Time Frame: 4-6 Weeks Goal 2:: Pt feel 90% better in overall pain adn manageable Goal Time Frame: 4-6 Weeks Goal 3:: Quick Dash < 7 Goal Time Frame: 4-6 Weeks Goal 4:: I approp HEP to minimize future problems Goal Time Frame: 4-6 Weeks Goal 5:: Sleep withotu interruption. Goal Time Frame: 4-6 Weeks - Rehabilitation Potential Physical Therapy Diagnosis: R shoulder pain biceps tendonitis vs cervical radic Rehabilitation Potential: Fair - Anticipated Interventions Patient/Client Instruction: Educate patient on: Condition, Plan of Care For the Purpose of:: To decrease pain, To increase ROM, To improve muscle performance and motor function, To increase tolerance to activi ty/condition/position, To improve ability of physical actions for home/community/work/leisure Therapeutic Exercise to Include: Strength training, Postural training, Passive ROM, Active ROM, Scapular Strength/Stabilization For the Purpose of:: To decrease pain, To increase ROM, To improve muscle performance and motor function, To increase tolerance to activity/condition/position, To improve ability of physical actions for home/community/work/leisure Manual Therapy Techniques to Include: Mobilization, Soft tissue mobilization For the Purpose of:: To decrease pain, To increase ROM TENS: Yes Cryotherapy (ice pack, ice massage): Yes Ultrasound (thermal/non thermal): Yes - nonthermal R shoulder For the Purpose of:: To decrease pain, To decrease swelling/inflammation Thank you for the opportunity to evaluate your patient. For Medicare and Medicare HMO plans, please review the plan of care and approve it. It will need to be FAXED BACK to us at [phone] for Medicare purposes. For Medicare only, by signing this I certify the plan of care. Please let me know if there are questions or concerns regarding this plan of care. Physician Signature: Date:
--- NOTE | 2020-05-25 18:12 | HP.PTREVAL ---
Dr. Ciera Harris, DO, It has been my pleasure to treat MAGED CALLAWAY over the last 6 visits for R shoulder labral tear, partial RTC tear and biceps tendonitis.. Please see the progress note below for an update on the physical therapy plan of care! Subjective: Overall nagging pain is better. However, I still feel limited in reaching OH and sleeping on R side adn reaching out to side. It still hurts. Reaching into cupboard. HEP: daily band exercises. Using orange band /YTB and doing 3x10. Sleeping better but still can't lie on R. Objective/Function: Full aROM R UE but painful arc at 90 degrees, full IR, ER without alot of increased pain. Strength is 4+ L shoulder and elbow, R elbow flexiona and ext is 4, ext rotation 4-, IR 4 adn flexion/ext 4- with some discomfort on flex, abd, ext rotation. Overall pt is making slow progress but acceptable based on the tear that she has. Will continue to be careful with activitiy at home as able and strengthen minus ext rotation at home. Appropriate to cotninue toward goals with questionable prognosis Plan Plan: continue 2-3x/week for 2-4 weeks... 1. Please do US each visit. 2. progress PAINFREE strengthening(pt holding on ext rotation due to pain) of R shoulder and HEP as tolerated. 3. Emphasize avoiding aggravating activities at home/posture Goals Goal 1:: Full cervical and shoulder AROM without pain end ranges. Goal Time Frame: 4-6 Weeks Goal Progress: till has pain. Goal 2:: Pt feel 90% better in overall pain adn manageable Goal Time Frame: 4-6 Weeks Goal Progress: 25% Goal 3:: Quick Dash < 7 Goal Time Frame: 4-6 Weeks Goal Progress: Progressing Goal 4:: I approp HEP to minimize future problems Goal Time Frame: 4-6 Weeks Goal Progress: Progressing Goal 5:: Sleep withotu interruption. Goal Time Frame: 4-6 Weeks Goal Progress: Not Progressing R side Anticipated Interventions Patient/Client Instruction: Educate patient on: Condition, Plan of Care For the Purpose of:: To decrease pain, To increase ROM, To improve muscle performance and motor function, To increase tolerance to activity/condition/position, To improve ability of physical actions for home/community/work/leisure Therapeutic Exercise to Include: Strength training, Postural training, Passive ROM, Active ROM, Scapular Strength/Stabilization For the Purpose of:: To decrease pain, To increase ROM, To improve muscle performance and motor function, To increase tolerance to activity/condition/position, To improve ability of physical actions for home/community/work/leisure Manual Therapy Techniques to Include: Mobilization, Soft tissue mobilization For the Purpose of:: To decrease pain, To increase ROM TENS: Yes Cryotherapy (ice pack, ice massage): Yes Ultrasound (thermal/non thermal): Yes - nonthermal R shoulder For the Purpose of:: To decrease pain, To decrease swelling/inflammation Please do not hesitate to contact me at [phone] by phone or if you have questions or concerns regarding this new plan of care! Sincerely, Melquiades Pickett, DPT, OCS, CSCS
--- NOTE | 2020-06-13 17:51 | HP.PTREVAL ---
Dr. Ciera Harris, DO, It has been my pleasure to treat MAGED CALLAWAY over the last 9 visits for R shoulder labral tear, partial RTC tear and biceps tendonitis.. Please see the progress note below for an update on the physical therapy plan of care! Subjective: Reaching overhead is still painful. Conmfortable at rest. Sleep is OK,much better. Reaching out in front is better but still noticaby painful, but it would not stop her. 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 Avoids lifting water jugs and avoiding carrying heavy items. Unable to play softball. Objective/Function: Full aROM without pain today. Strength R shoulder is 4 internal and external rotation without pain, 4- flexion and abduction weak, 4- bi and triceps without pain but weak. Throws a light ball 7x today very gently without pain. Overall functionally doing well but frustrated as hurts often to lift overhead and still limited in mnay of her activities at school like lifting a child and playing softball. Fair prognosis for continued progression slowly. Plan Plan: Pt to schedule with Dr. Parker for f/u per doctor note. If options are only surgery or manage it, then she woudl like to cotninue therapy for oH strengtha dn continued progression of strengthening adn function. Recommend f/u with doctor and then 2x/week for 4 weeks of therapy to help manage progression of exercises to. 1. OH strength. 2. biceps and triceps strength. 3. scap strength and progression of functional lifting adn throwing including body mechanics with lifting. ice as needed. Pt to carole fter she sees doctor. Goals Goal 1:: Full cervical and shoulder AROM without pain end ranges. Goal Time Frame: 4-6 Weeks Goal Progress: Goal Met Goal 2:: Pt feel 90% better in overall pain adn manageable Goal Time Frame: 4-6 Weeks Goal Progress: 40% Goal 3:: Quick Dash < 7 Goal Time Frame: 4-6 Weeks Goal Progress: Progressing Goal 4:: I approp HEP to minimize future problems Goal Time Frame: 4-6 Weeks Goal Progress: initial met. Goal 5:: Sleep withotu interruption. Goal Time Frame: 4-6 Weeks Goal Progress: mostly met Goal 6:: I appropriate OH and upper half strength to cotninue home progressions to 70% better. Goal Time Frame: 4-6 Weeks Goal Progress: NEW GOAL Anticipated Interventions Patient/Client Instruction: Educate patient on: Condition, Plan of Care For the Purpose of:: To decrease pain, To increase ROM, To improve muscle performance and motor function, To increase tolerance to activity/condition/position, To improve ability of physical actions for home/community/work/leisure Therapeutic Exercise to Include: Strength training, Postural training, Passive ROM, Active ROM, Scapular Strength/Stabilization For the Purpose of:: To decrease pain, To increase ROM, To improve muscle performance and motor function, To increase tolerance to activity/condition/position, To improve ability of physical actions for home/community/work/leisure Manual Therapy Techniques to Include: Mobilization, Soft tissue mobilization For the Purpose of:: To decrease pain, To increase ROM TENS: Yes Cryotherapy (ice pack, ice massage): Yes Ultrasound (thermal/non thermal): Yes - nonthermal R shoulder For the Purpose of:: To decrease pain, To decrease swelling/inflammation Please do not hesitate to contact me at [phone] by phone or if you have questions or concerns regarding this new plan of care! Sincerely, Melquiades Pickett, DPT, OCS, CSCS
--- NOTE | 2020-09-07 17:07 | HP.PTDCNRP_ITS ---
MAGED CALLAWAY was seen in my office for initial evaluation on 04/25/20. The following Plan of Care was established for this patient: Initial Frequency: 2-3x /Week Initial Duration: 4-6 Weeks Patient/Client Instruction: Educate patient on: Condition, Plan of Care For the Purpose of:: To decrease pain, To increase ROM, To improve muscle performance and motor function, To increase tolerance to activity/condition/position, To improve ability of physical actions for home/community/work/leisure Therapeutic Exercise to Include: Strength training, Postural training, Passive ROM, Active ROM, Scapular Strength/Stabilization For the Purpose of:: To decrease pain, To increase ROM, To improve muscle performance and motor function, To increase tolerance to activity/condition/position, To improve ability of physical actions for home/co mmunity/work/leisure Manual Therapy Techniques to Include: Mobilization, Soft tissue mobilization For the Purpose of:: To decrease pain, To increase ROM TENS: Yes Cryotherapy (ice pack, ice massage): Yes Ultrasound (thermal/non thermal): Yes - nonthermal R shoulder For the Purpose of:: To decrease pain, To decrease swelling/inflammation This patient was last seen in our office 06/13/20. Pertinent comments regarding their Physical therapy will appear below: Pt seen 9 visits and was 40% better. She was to return to doctor after that and call if she needed to return. At this point, it has been over two months and I will discontinue due to nonattendance. At this point I will be discontinuing this patient from physical therapy. I would be happy to see this patient again in the future if found appropriate by the physician. Thank you! Melquiades Pickett, DPT, OCS, CSCS
== END 2020-06-13 19:00 | disposition home or self-care (01) ==
LOC: PT 17:00
PROVIDERS: PCP Family Medicine; Visit Provider Orthopaedic Surgery
DX: S43.401D Unspecified sprain of right shoulder joint, subsequent encounter (principal); M75.21 Bicipital tendinitis, right shoulder
CPT/HCPCS: 97035; 97110; 97162; 97164

== ENCOUNTER 2020-09-11 08:34 | Day surgery (SDC) | payer OTHER, SELFPAY ==
[2018-06-22 06:44] VITALS: BMI 46.4
--- NOTE | 2020-09-08 12:05 | EKG12_ITS ---
Test Reason : PREOP Blood Pressure : / mmHG Vent. Rate : 077 BPM Atrial Rate : 077 BPM P-R Int : 146 ms QRS Dur : 094 ms QT Int : 390 ms P-R-T Axes : 049 035 052 degrees QTc Int : 441 ms Normal sinus rhythm Normal ECG Confirmed by MADAY BLOUNT, MAYRA ([id number]), editor sound RADHA ARTEAGA ([id number]) on 09/11/2020 1:44:01 PM Referred By: Vj Alexander Confirmed By:MAYRA NASSAR MD
[2020-09-08 13:40] LABS: Hematocrit 40.4 % (37-47); Hemoglobin 12.2 g/dL (12.0-15.0); Mean Corp Hgb Conc 30.2 g/dL (32-36); Mean Corpuscular Volume 79.5 fL (81-99); Mean Platelet Vol. 11.7 fl (6.2-12.0); Platelet Count 339 K/mm3 (150-450); RBC Distribution Width CV 16.6 % (11.6-14.6); Red Blood Count 5.08 M/mm3 (4.2-5.4); White Blood Count 7.1 K/mm3 (4.4-11.0)
[2020-09-08 13:47] LABS: Partial Thromboplast Time 35.7 Seconds (24.1-36.2)
[2020-09-08 13:59] LABS: International Normalized Ratio 1.1; Prothrombin Time (Protime)PT. 13.9 SECONDS (11.7-14.9)
[2020-09-08 14:09] LABS: Creatinine, Serum 0.72 mg/dL (0.55-1.02); EST Glomerular Filtration Rate 97 mL/min (>60); Est Glom Filt Rate - Afr Amer 117 mL/min (>60)
[2020-09-08 14:18] LABS: AST(SGOT) 20 U/L (15-37); Alanine Aminotransfer ALT/SGPT 33 U/L (13-56); Alkaline Phosphatase 60 U/L (45-117); Bilirubin, Direct 0.12 mg/dL (0.00-0.30); Globulin 3.2 g/dL (2.2-4.2); Magnesium 2.1 mg/dL (1.6-2.6); Protein, Total 7.2 g/dL (6.4-8.2)
--- NOTE | 2020-09-10 21:23 | PCM.HP.BLA ---
History and Physical Date of Admission: 09/11/20 Surgical History and Physical Date: 09/10/2020 Name: MAGED FRIAS Age: 40 Date of : 1980 Maged Frias, a 40 year old female 1 0 0 0 1, presents for RAVH/BSO on September 11, 2020 at 11 :00. -- Severe Dysmenorrhea, Menorrhagia S/P Ablation -- Irregular and heavy menstrual cycles. Maged claims it is getting progressively getting worse. It occurs monthly. It is located in the uterus. It is aggravated by intercourse and tampons are uncomfortable. Additional comments are: still heavy menses and now dysmenorrhea and just wants it to stop. Endometrial ablation in 2019 but symptoms have persisted. MEDICATIONS HISTORY: Patient is also takin. Plaquenil 200 mg tablet, One pill by mouth once a day 2. Prilosec OTC 20 mg tablet,delayed release, 40mg once daily 3. Topamax 50 mg tablet, Two in am One in pm 4. Cymbalta 60 mg capsule,delayed release, One pill by mouth twice a day 5. Humira 40 mg/0.8 mL subcutaneous syringe kit, One injection biweekly ALLERGIES: NKDA, Augmentin, Rash, itching, Skelaxin, Pain, abdomen, Imitrex and Visual disturbance Infections - Chicken pox Illnesses - depression, buldging disk in back and Rheumatoid Arthritis Accidents - no injuries of consequence Hospitalizations - see surgery Review of Systems: GENERAL - Denies fever, or chills SKIN - Denies skin changes EYES - Denies visual changes EARS - Denies difficulty hearing NOSE - Denies nasal congestion or bleeding MOUTH - Denies sore throat or difficulty swallowing NECK - Denies pain or swelling RESPIRATORY - Denies shortness of breath or wheezing CARDIOVASCULAR - Denies palpitations or chest pain GASTROINTESTINAL - Denies nausea, vomiting, diarrhea, constipation GENITOURINARY - Denies dysuria, frequency of urination, incontinence of urine MUSCULOSKELETAL - Denies joint or muscle pain NEUROLOGICAL - Denies localized numbness or weakness PSYCHIATRIC - Denies depression or anxiety ENDOCRINE - Denies heat or cold intolerance, weight loss or gain HEMATO-IMMUNOLOGIC - Denies excesive bleeding with cuts SOCIAL HISTORY: Alcohol Use - RARELY Smoking - denies smoking Diet - balanced Diet, small frequen and healthy meals Lifestyle - moderate stress lifestyle and Exercise - Walking at least one mile daily Seat Belt Use - always Employer - [employer] Local Job Description - [employer] Illicit Drug Use - denies use of street drugs Sexual Activity - and [employer] Hours Worked - 40 hours per week Spouse-Sig Other Name - Richar Spouse-Sig Other Occupation - [employer] Spouse-Sig Other Phone No - [phone] Children Name(s) - Charlene Control - Prior Tubal FAMILY HISTORY: Father: Borderline Diabetic. Maternal Grandfather: Lung Cancer. Paternal Aunt: Colon Cancer. MENSTRUAL HISTORY: LMP Known?- DefiniteAmount/Duration - 5-6 days, Regularity - Regular, Frequency - monthly days, LMP - 08/13/20 PAST PREGNANCIES: Total Pregnancies - 1; Full Term Pregnancies - 1; Premature - 0; Abortions, Induced - 0; Abortions, Spontaneous - 0; Ectopics - 0; Multiple Births - 0; Living Children - 1 SURGICAL HISTORY: 1. Breast Reduction 03/06 ; Dr. Waddell - Pain/Discomfort 2. 12/14/2009 cholecystectomy ; Celio Hailebulesly - 3. 06/22/2018 Dx hysteroscopy, D and C, HTA, Lap B salpingectomy,lysis of adhesions, skin tag removal ; Vj Alexander M.D. - 4. 2013 Back Surgery ; - PHYSICAL EXAM BP- 110/76 Sitting, Right arm, large cuff Weight- 277.34391 lbs Height- 64 inch BMI:47.65 CONSTITUTIONAL - NAD, well nourished, and well developed SKIN - No rash, lesions, or ulcers HEENT - Normocephalic, PERRLA, EOMI NECK - No nodes, no nuchal rigidity and thyroid normal size and texture LYMPH NODES - Palpation of lymph nodes in neck and groins within normal limits LUNGS - CTA x2 without wheezes, crackles or rales CARDIAC - Regular rate and rhythm without rubs, murmurs, or gallops BREAST - No dominant masses, no tenderness, no axillary adenopathy, no nipple discharge, no skin changes ABDOMEN - Without hepatosplenomegaly, distention, masses, rebound, or guarding; normal bowel sounds; no hernias EXTREMITIES - No edema or calf tenderness NEUROLOGICAL - Cranial nerves II-XII grossly intact PSYCHIATRIC - A and O to time, place, person, mood and affect External Genitial Vagina - non-tender without lesions Urethra/Urethral Meatus - non-tender Bladder - non-tender Vagina - vaginal whiteside are pink and moist without loss of rugae and no evidence of atropy Cervix - without cervical motion tenderness and has normal size and features without evident lesions Uterus - multiparous size 6 cm & wt 75-125 g Adnexa - clear without massess or tenderness ASSESSMENT/PLAN: Dysmenorrhea and Excessive and frequent menstruation with regular cycle Desires definitive treatment as she has failed endometrial ablation. Discussed options and patient desires we proceed with RAVH/BSO. Discussed RBAs including need for HRT and possibility of laparotomy. Discussed RBAs and all questions answered.
[2020-09-11] VITALS (12 sets, daily range): BP systolic 115–153; BP diastolic 73–92; PULSE 78–106; RESP 14–20; TEMP 36.2–37.3; O2SAT 93–100; BMI 48.6
--- NOTE | 2020-09-11 | HYST_PTH ---
PATIENT: MAGED CALLAWAY [place] [facility] [id number] AGE/SX: 40/F ROOM: RE09/11/[address]: Dr. Vj Alexander MD : 1980 BED: DIS: 09/11/2020 SPEC #: [id number] RECD: 09/11/20 15:14 STATUS: IBETH RICE #: [id number] EFFIE: 09/11/20 00:[address]: Vj Alexander DEPT: SURGICAL PATHOLOGY RECD BY: Kuldip Camejo ENTERED: 09/12/20 08:07 SP TYPE: HYSTERECT OTHR DR: Dr. Michael Clark MD Tissues: Uterus, NOS Procedures: Surgery Specimen Level V HEADER OPERATION: ERAS, lap robotic hysterectomy, bilateral salpingo-oophorectomy PRE-OP DIAGNOSIS: Dysmenorrhea and excessive and frequent menstruation with regular cycle TISSUE SUBMITTED: Cervix, uterus and bilateral fallopian tubes, ovaries MICROSCOPIC DIAGNOSIS Uterus, hysterectomy: Cervix ? nabothian cysts and mild chronic inflammation. Endometrium ? transition endometrium with focal glandular and stromal breakdown. Myometrium ? no pathologic change. Right ovary ? follicular and corpus luteal cysts. Left ovary - follicular and corpus luteal cysts. AM:jace 09/13/2020 MICROSCOPIC DESCRIPTION Slides are reviewed. GROSS DESCRIPTION Received in fixative is one container labeled with the patient's name and designated uterus, bilateral fallopian tubes and ovaries. The specimen consists of a hysterectomy specimen consisting of uterus with cervix and attached bilateral ovaries. The fallopian tubes are not identified. The uterus with cervix weighs 70 gm and measures 8.5 x 5.5 x 4 cm. The serosal surface is prasad, glistening. The external os is slit-like in contour. The endocervical canal measures 3 cm in length and the endocervical mucosa is prasad, glistening and unremarkable. The Y-shaped endometrial cavity measures 4 cm in length and 3 cm in width. The endometrium is prasad, glistening without any mass lesion and measures 3.1 cm in thickness. Sections of the uterine wall do not reveal any mass lesion and measures up to 2.5 cm in thickness. The right ovary measures 2.5 x 2.5 x 1.8 cm. Sections reveal a few cysts filled with clear to hemorrhagic fluid. The largest cyst measures 1 cm in greatest dimension. The left ovary measures 3.5 x 2.5 x 2 cm. Sections reveal multiple cysts filled with clear to hemorrhagic fluid. The largest cyst measures 1 cm in greatest dimension. Multiple corpus lutea are also noted. The largest corpus lutea measures 1.5 cm in greatest dimension. Speech And Language Assistant sections are submitted in nine cassettes as follows: 1 - anterior cervix, 2 - posterior cervix, 3 & 4 - anterior uterine wall, 5 & 6 - posterior uterine wall, 7 - right ovary, 8 & 9 - left ovary. / SJ:rg 09/12/20 TC:5 CPT: 85074
[2020-09-11] MEDS: Lactated Ringers 1,000 ML 40 ML IV ×3 (09:00→14:15)
[2020-09-11] MEDS: Acetaminophen 500 MG Tablet 1000 MG PO ×2 (09:41→15:15)
[2020-09-11] MEDS: Gabapentin 600 MG Tablet PO (09:41)
[2020-09-11 10:06] LABS: Bedside Glucose 126 mg/dL (70-110)
--- NOTE | 2020-09-11 11:33 | OP.PCM_ITS ---
Report of Operation Date of Procedure: 09/11/20 Pre-Operative Diagnosis: Menorrhagia Status Post Endometrial Ablation, Dysmenor mckenzie Post-Operative Diagnosis: Menorrhagia Status Post Endometrial Ablation, Dysmenorrhea Surgery/Procedure Performed:: Robotic Assisted Vaginal Hysterectomy and Bilateral Salpingo-Oophorectomy Description of Surgical Findings:: 10 cm uterus with normal-appearing fallopian tubes and ovaries. Surgeon: Vj Alexander ply cutter: Gabriel Gallardo Type of Anesthesia: General (Endotracheal) Anesthesiologist: Jose Conner Specimen's removed: Uterus with bilateral fallopian tubes and ovaries Drains: Amanda to straight drain Estimated Blood Loss (mL): Minimal Fluids Replaced: Crystalloid Description of Procedure: Indication: This is a 40 year old patient who has been having problems with severe dysmenorrhea and menorrhagia after having an endometrial ablation. Conservative measures have not been helpful. The patient has been counseled regarding the risks, benefits and alternatives of this procedure including the possibility of bleeding, infection, and injury to surrounding structures such as bowel bladder and all questions were answered. She understands that if BSO is needed that she will need to be on HRT for an indefinite period of time. Procedure: Pt taken to the operating room where, after induction of general anesthesia, the patient was prepped and draped in the usual sterile fashion and placed on a non-slip Huggy-u-vac device. Trendelenburg test was satisfactory. Bladder was drained of urine with a Amanda catheter which was left in place. Anterior cervix grasped and cervix was dilated to about 3-4 mm. Uterus sounded to 9 cms. 0-Vicryl suture was placed at the 3:00 and 9:00 position of the cervix. A small Ad[facility]cula Operating Room Specialist Uterine Manipulator was then placed in the uterus and attention was turned to the laparoscopic portion of the procedure. Ropivocaine 0.5% was injected approximately 2-3 cm superior to the umbilicus and an 8 mm robotic camera port was introduced directly with intraperitoneal placement confirmed with CO2 insufflation. 8 mm robotic side ports were introduced under direct visualization approximately 11 cm lateral and 2 cm inferior to the umbilical port. A 5 mm left upper quadrant port was introduced and airseal insufflation with CO2 was started. The above findings were noted. Robot was docked without difficulty and attention turned to the robotic portion of the procedure. Approximately 30 cc of Ropivicaine was used. Bilateral infundibulopelvic ligaments were ligated with 35 campbell bipolar c oagulation to the level of the round ligament. The posterior aspect of the cervix was identified and then opened for about 1 cm using 25 watt monopolar cautery identifying the uterine manipulating device which had been placed vaginally. Bladder flap was opened and divided to the level of the round ligaments using monopolar cautery. Progressive bites were then ligated on each side of the cervix with 35 campbell bipolar cautery to the uterine arteries. The anterior vaginal mucosa was entered and cervix circumscribed with monopolar cautery. Uterus and attached tubes and ovaries were removed through the vagina. Vaginal cuff was closed first with 0-Vicryl Donn stitches placed at each angle followed by closure of the mid-cuff with 0-Monocryl V-lock suture in two layers. Pelvis was copiously irrigated with saline and the right and left ureter were noted to peristalse. Robot was undocked and trocars were removed with as much gas as possible. Incisions were closed with 4-0 Monocryl subcuticular sutures and incisions covered with steri-strips. The patient tolerated the procedure well and was taken to the recovery room in satisfactory condition. Sponge, instruments and needle counts were all correct. There were no apparent complications of the surgery. Cefotan 2 gms IV was given prior to the procedure. Grafts/Implants Used: None Complications None Admit VTE Documentation VTE Present on Admission: Yes VTE Mechan Device Prophylaxis: SCD's
--- NOTE | 2020-09-11 11:36 | PCM.DC ---
Discharge Instructions Diet Discharge Diet: No restrictions (do what you feel comfortable, but do not over do it. You may climb stairs, just use caution and hold the railing.) Activity Discharge Activity: May Shower and May Take a Tub Bath May resume sexual activity in: 6 weeks (nothing in the vagina.) Lifting Restrictions: 25 pounds for 6 weeks. Additional Activity Instructions:: Nothing in the vagina for 6 weeks please; no lifting more than 20-25 lbs for 6 weeks. Use Ibuprophen 800 mg orally every 8 hours as needed for pain. Can also add Tylenol 1000 mg every 8 hours if needed for pain. If Ibuprophen and Tylenol are not effective then use the Oxycodone but keep in mind it can cause serious constipation issues. Drink lots of water. Call if bleeding more than a pad per hour. Use the colace as constipation is a big issue after this type of surgery. Steps and walking are OK. Activity is encouraged but do not over do it !! Dressing / Incision Call your doctor if your incision/area has: Continuous Slow Oozing, Sudden Increased Bleeding, Increased Pain/ Swelling, Increased Redness and Foul Smelling Discharge Call your doctor if you observe: Fever of 101 or Higher, Inability to urinate, Inability to have a bowel movement, Using more than 1 pad per hour and - (Some vaginal bleeding may be noted for up to 4-8 weeks.) Additional Dressing/Incision Instructions:: The white strips (Steri Strips) on your incision will fall off on their own. Follow Up Care Please Follow Up With: Vj Alexander MD When: Call [phone] for an appointment to be seen in 2 weeks. Test Results: Test results from this visit will be discussed in further detail at your follow-up appointment, if applicable. Discharge Plan Admission Primary Reason for Your Visit: Robotic Vaginal Hysterectomy Attending Provider: Vj Alexander Primary Care Provider: Michael Clark Discharge Orders/Prescriptions Prescriptions: New oxycodone 5 mg capsule 5 mg PO Q6H PRN (Reason: pain) 7 Days Qty: 14 RF: 0 docusate sodium 100 mg tablet 100 mg PO BID PRN (Reason: constipation) Qty: 60 RF: 1 estradiol 2 mg tablet 2 mg PO DAILY Qty: 90 RF: 4 Continued etanercept 50 mg/mL (1 mL) pen injector 0.4 mg SC .Q2WE RF: 0 omeprazole 40 MG capsule,delayed release(DR/EC) 40 mg PO DAILY RF: 0 hydroxychloroquine 200 MG tablet 200 mg PO DAILY RF: 0 duloxetine 60 MG capsule,delayed release(DR/EC) 60 mg PO DAILY RF: 0 topiramate 50 mg tablet 150 mg PO DAILY RF: 0 Lactobacillus acidophilus 1 EACH capsule 1 ea PO DAILY RF: 0 Biocleanse 1 cap PO DAILY RF: 0 Referrals / Follow Up: Michael Clark MD [Primary Care Provider] - Disposition Disposition (needs filled in before D/C Order can be placed): Home, self care
[2020-09-11] MEDS: Ropivacaine 0.5% 30 ML Vial (12:30)
[2020-09-11] MEDS: Ondansetron 4 MG/2 ML Vial IV (14:59)
== END 2020-09-11 18:15 | disposition home or self-care (01) ==
LOC: SDC 08:36 → AC 08:37
PROVIDERS: Anesthesiology; PCP Family Medicine; Referring Provider Obstetrics & Gynecology; Visit Provider Obstetrics & Gynecology
PROC: 0UT94ZZ Resection of Uterus, Percutaneous Endoscopic Approach (ICD-10-PCS; CPT 58552; principal; 2020-09-11 10:20)
DX: N88.8 Other specified noninflammatory disorders of cervix uteri (principal); N72 Inflammatory disease of cervix uteri; N83.12 Corpus luteum cyst of left ovary; N83.11 Corpus luteum cyst of right ovary; N83.02 Follicular cyst of left ovary; N83.01 Follicular cyst of right ovary; F32.9 Major depressive disorder, single episode, unspecified; M06.9 Rheumatoid arthritis, unspecified; F41.9 Anxiety disorder, unspecified; M79.7 Fibromyalgia; K21.9 Gastro-esophageal reflux disease without esophagitis; Z79.899 Other long term (current) drug therapy
CPT/HCPCS: 00944; 58552; 36415; 80076; 82565; 82962; 83735; 85027; 85610; 85730; 86850; 86900; 86901; 87426; 88307; 93005; C9803; J7120; J2405

== ENCOUNTER → 2020-10-11 | Outpatient (CLI) | payer OTHER, SELFPAY ==
[2020-09-11 09:15] VITALS: BMI 48.6
== END | disposition home or self-care (01) ==
LOC: LABSPEC 16:46
PROVIDERS: PCP Family Medicine; Visit Provider Obstetrics & Gynecology
DX: N39.0 Urinary tract infection, site not specified (principal)
CPT/HCPCS: 87086; 87088

== ENCOUNTER 2021-04-26 14:58 | Outpatient (CLI) | payer OTHER, SELFPAY ==
[2021-04-26 15:11] VITALS: BP 187/101; PULSE 97; RESP 16; TEMP 36.6; O2SAT 97; BMI 48.6
[2021-04-26] MEDS: 0.9% Saline Lock 10 ML Syringe IV (15:12)
[2021-04-26 16:01] VITALS: BP 144/96; PULSE 86; RESP 16; TEMP 37.3; O2SAT 98
[2021-04-26 16:54] VITALS: BP 134/93; PULSE 81; RESP 16; TEMP 36.8; O2SAT 98
== END 2021-04-26 23:59 | disposition home or self-care (01) ==
LOC: MS3OUT 14:58 → MS3 14:59
PROVIDERS: PCP Family Medicine; Referring Provider Nurse Practitioner Adult Health; Visit Provider Nurse Practitioner Adult Health
DX: U07.1 COVID-19 (principal)
CPT/HCPCS: J7050; M0247; A4216; Q0247

== ENCOUNTER 2021-11-16 18:03 | Emergency (ER) | payer OTHER, SELFPAY ==
[2021-11-16 18:04] VITALS: BP 149/117; PULSE 102; RESP 18; TEMP 36.4; O2SAT 98; BMI 51.2
[2021-11-16 18:33] LABS: Mucous, Urine 0 SEEN /hpf (<or=2+); Red Blood Cells-Urine 0 SEEN /hpf (0-5)
[2021-11-16 18:38] LABS: Color, Urine Yellow (Yellow); Glucose, Dipstick Normal (Normal); Ketone-Dipstick 5 mg/dl (Negative); Leukocyte Esterase-Dipstick Negative /ul (Negative); Nitrite-Dipstick Negative (Negative); Occult Blood-Urine Negative /ul (Negative); Protein-Dipstick 15 mg/dl (Negative); Specific Gravity, Urine 1.025 (1.002-1.030); Urine Bilirubin Dipstick Negative (Negative); Urine Clarity Clear (Clear); Urine Urobilinogen Normal (Normal)
[2021-11-16 18:47] LABS: Anion Gap 4 (5-15); BUN 14 mg/dL (7-18); BUN/Creat Ratio 16.3 RATIO (10-20); Calcium,Total 9.8 mg/dL (8.5-10.1); Chloride 106 mmol/L (98-107); Creatinine, Serum 0.86 mg/dL (0.55-1.02); EST Glomerular Filtration Rate 78 mL/min (>60); Est Glom Filt Rate - Afr Amer 94 mL/min (>60); Estimated Creatinine Clearance 72.65 ml/min; Glucose 141 mg/dL (74-106); Potassium 3.8 mmol/L (3.5-5.1); Sodium Level 139 mmol/L (136-145)
[2021-11-16 18:53] LABS: Bacteria 2+ /hpf (None Seen); White Blood Cells 0 SEEN /hpf (0-5)
[2021-11-16 18:54] LABS: Squamous Epithelial Cells - UA 0-5 SEEN /hpf (5-10)
[2021-11-16 18:56] LABS: Absolute Lymphocyte Count 2.59 X10^3/uL (0.83-4.51); Absolute Neutrophil Count 4.1 X10^3/uL (2.0-7.7); Basophil# 0.04 X10^3/uL; Basophil% 0.5 % (0-1); Eosinophil# 0.13 X10^3/uL; Eosinophils% 1.7 % (0-5); Hematocrit 37.9 % (37-47); Hemoglobin 11.2 g/dL (12.0-15.0); Lymphocyte # 2.59 X10^3/ul (0.83-4.51); Lymphocyte % 34.4 % (19-41); Mean Corp Hgb Conc 29.6 g/dL (32-36); Mean Platelet Vol. 11.7 fl (6.2-12.0); Monocyte# 0.61 X10^3/uL; Monocyte% 8.1 % (0-10); NRBC Flagged by Analyzer 0 % (0-5); Neutrophil # 4.12 X10^3/uL (2.7-7.7); Neutrophil % 54.9 % (47-70); Platelet Count 301 K/mm3 (150-450); RBC Distribution Width SD 45.4 fl (35.1-43.9); Red Blood Count 4.86 M/mm3 (4.2-5.4); White Blood Count 7.5 K/mm3 (4.4-11.0)
[2021-11-16 19:55] LABS: Internal QC Validated? YES +Cl - CLEAR BKGD; Pregnancy, Serum, hCG Quali. NEGATIVE Negative
[2021-11-16] MEDS: Ondansetron 4 MG/2 ML Vial IV (21:20)
[2021-11-16] MEDS: Ketorolac 15 MG/ML Vial IV (21:20)
[2021-11-16] MEDS: Dicyclomine 10 MG Capsule 20 MG PO (21:20)
--- NOTE | 2021-11-16 21:25 | CT_ITS ---
EXAM: CT ABDOMEN AND PELVIS WITHOUT INTRAVENOUS CONTRAST CLINICAL INDICATION: diffuse abd pain, nausea TECHNIQUE: Helically acquired images were obtained of the abdomen and pelvis without intravenous contrast. CTDIvol = ( 24.15 ) mGy, DLP = ( 1375.48 ) mGycm This CT exam was performed using one or more of the following dose reduction techniques: automated exposure control, adjustment of the mA and/or kV according to patient size, and/or use of iterative reconstruction technique. This report was created using Spor report generation technology. COMPARISON: None. FINDINGS: LOWER THORAX: Small hiatal hernia. Lung bases are clear. No cardiomegaly. No significant pericardial effusion. ABDOMEN: LIVER: Unremarkable. Homogeneous. GALLBLADDER AND BILE DUCTS: Unremarkable. No calcified gallstones. No gallbladder distention or wall edema. No intra- or extrahepatic biliary ductal dilation. PANCREAS: Unremarkable. No focal cystic mass. SPLEEN: Unremarkable. Normal size without focal cystic or solid mass. ADRENALS: Unremarkable. No nodules. KIDNEYS AND URETERS: Unremarkable. Normal renal size and position. No hydronephrosis. STOMACH AND BOWEL: Unremarkable. No stomach or bowel distention. No focal inflammatory change. PELVIS: APPENDIX: No evidence of acute appendicitis. BLADDER: Unremarkable. REPRODUCTIVE: Unremarkable as visualized. No mass. ABDOMEN and PELVIS: INTRAPERITONEAL SPACE: Unremarkable. No ascites or other fluid collection. No free air. BONES/JOINTS: L5-S1 posterior and anterior surgical fusion with interbody spacer in place. No hardware complications. No suspicious lytic or blastic abnormality. SOFT TISSUES: Unremarkable. No discrete abdominal or pelvic wall hernia. VASCULATURE: Unremarkable. Abdominal aorta is non-dilated. LYMPH NODES: Unremarkable. No enlarged lymph nodes. CT/Abdomen/Pelvis without Cont IMPRESSION: No acute or inflammatory disease or bowel obstruction. Electronically Signed: Amanuel Parada MD at 21:42 EDT ,
[2021-11-16 21:35] LABS: AST(SGOT) 21 U/L (15-37); Alanine Aminotransfer ALT/SGPT 42 U/L (13-56); Albumin, Serum 3.8 g/dL (3.2-5.0); Alkaline Phosphatase 86 U/L (45-117); Globulin 3.7 g/dL (2.2-4.2); Lipase 108 U/L (73-393); Protein, Total 7.5 g/dL (6.4-8.2)
--- NOTE | 2021-11-16 22:28 | EDS_ITS ---
HPI HPI - GI History of Present Illness Chief Complaint: Abd Pain Informant: patient Abdominal Pain/Flank Pain Onset: Days (3) Context: Gradual Onset Timing: Intermittent Quality: Aching Location: Diffuse (See below) Current Severity: Mild Maximum Severity: Moderate Worsened by: - (Once it was worse after a meal. Once it was worse shortly after having bowel movement) Relieved by: Nothing Nausea/Vomiting/Emesis GI Symptom: Positive for Nausea (A couple times but not currently); Negative for Vomiting Diarrhea/Melena/Hematochezia GI Symptom: Positive for - (Constipated recently this past week); Negative for Diarrhea, Melena or Hematochezia Associated Symptoms Associated Symptoms: Negative for Dysuria, Frequency, Hematuria or Urgency Narrative Narrative: Patient presents with pain across her low back that has been waxing and waning in addition to intermittent abdominal pain. The first time she had it several days ago it wrapped around both sides/flanks, the other times he has been in the right side of her abdomen. She states it is not really hurting severely right now, but just feels sore all over. Some nausea but no vomiting. She has felt constipated recently. Prior cholecystectomy, no other abdominal surgeries. [facility] Medical History Alcohol use Anemia Anxiety COVID-19 Easy bruising Encounter for screening for COVID-19 Fibromyalgia Gallbladder Removal (~2009) Gastric reflux History of edema History of IBS History of stress test Hx of echocardiogram Migraine headache Non-smoker Rheumatoid arthritis Rheumatoid arthritis Home Medications duloxetine 60 mg capsule,delayed release 60 mg PO DAILY 01/14/18 [History Last Taken 06/22/18 60 MG] hydroxychloroquine 200 mg tablet 200 mg PO DAILY 01/14/18 [History Last Taken 06/22/18 200 MG] omeprazole 40 mg capsule,delayed release 40 mg PO DAILY 01/14/18 [History Last Taken 09/11/20 04:30] Biocleanse 1 cap PO DAILY 06/15/18 [History Last Taken Unknown] Lactobacillus acidophilus 10 billion cell capsule 1 ea PO DAILY 06/15/18 [History Last Taken Unknown] topiramate 50 mg tablet 150 mg PO DAILY 06/27/20 [History Last Taken Unknown] estradiol 2 mg tablet 2 mg PO DAILY #90 tabs 09/11/20 [Rx Last Taken Unknown] dexamethasone 4 mg tablet (Decadron) 4 mg PO DAILY #4 tabs 04/23/21 [Rx Last Ta bela Unknown] dicyclomine 10 mg capsule 20 mg PO Q6H PRN PRN abdominal discomfort #20 CAPSULES 11/16/21 [Rx Last Taken Unknown] ondansetron 4 mg disintegrating tablet 8 mg PO Q8H PRN PRN Nausea #15 tabs 11/16/21 [Rx Last Taken Unknown] Allergy/AdvReac Type Severity Reaction Status Date / Time metaxalone [From Skelaxin] Allergy Unknown Verified 11/16/21 18:05 sumatriptan [From Imitrex] Allergy Unknown Verified 11/16/21 18:05 amoxicillin [From Augmentin] AdvReac Nausea/Vom/ Verified 11/16/21 18:05 Diarrhea clavulanic acid AdvReac Nausea/Vom/ Verified 11/16/21 18:05 [From Augmentin] Diarrhea Surgical History History of lumbar surgery History of salpingectomy Hx of breast reduction, elective Hx of tonsillectomy Social History Smoking Status: Never smoker ROS ROS ED Constitutional Constitutional ED: Denies chills or fever(s) Eyes Eyes: Denies change in vision or diplopia ENT ENT ED: Denies rhinorrhea or sore throat Cardiovascular Cardiovascular: Denies chest pain or palpitations Respiratory/Chest Respiratory/Chest: Denies cough or dyspnea Gastrointestinal Gastrointestinal: Reports as per HPI, abdominal pain, constipation and nausea; Denies diarrhea or vomiting Genitourinary Genitourinary ED: Denies dysuria or hematuria Musculoskeletal Musculoskeletal: Reports back pain; Denies neck pain Integumentary Denies abscess or rash Neurologic Neurologic: Denies headache(s), paresthesias or weakness Psychiatric Psychiatric: Denies anxiety or suicidal thoughts EXAM Physical Exam Const Vital Signs: 11/16/21 18:04 Temperature 97.5 F L Temperature Source Temporal Pulse Rate 102 H Respiratory Rate 18 Blood Pressure 149/117 H Blood Pressure Mean 127 Pulse Ox 98 Oxygen Delivery Method Room Air Positive well nourished, well developed and obese General Appearance ED: well developed and NAD Nutritional Appearance: obese HEENT Reports moist mucous membranes normocephalic and atraumatic Eyes PERRL and EOMs intact bilaterally Neck full ROM and supple Resp normal respiratory effort and clear to auscultation bilaterally Cardio regular rate, regular rhythm and no murmurs GI non-distended GI Narrative: Mild diffuse tenderness, no guarding or rebound tenderness. No palpable masses. Auscultation: normoactive bowel sounds Palpation: soft Back/Spine no CVA tenderness General Back: other FROM Extremity normal to inspection General Extremety ED: Negative for edema, pulses abnormal or tenderness General Extremity: Negative for edema or pulses abnormal Neuro oriented x3, CN's II-XII intact bilaterally and no sensory deficits noted Sensorium / Orientation: awake and alert Motor Exam: strength 5/5 throughout Psych mental status grossly normal and thought process normal Skin no rashes or lesions noted and no wounds MDM MDM MDM Narrative Medical decision making narrative: negative. Her blood counts are normal, her chemistries and liver enzymes are normal, and her urinalysis is normal. We did a CT, it shows no evidence of a ureteral obstruction/stone, colitis, diverticulitis, bowel obstruction, or any other acute inflammatory condition. I suspect this is colonic spasm, hopefully related to her constipation. If this is the case, treating her constipation will help relieve the symptoms. She appears to have a history of irritable bowel syndrome as well which is in the differential for the symptoms. I offered her an enema here, she declines which I think is fine. I gave her Toradol, Zofran, and dicyclomine for her symptoms while we were getting the work-up. She does have some improvement. Will prescribe her dicyclomine and Zofran to use at home as needed, and given appropriate instructions regarding constipation and follow-up and she is comfortable with that plan. Lab Data Attestation: I reviewed the patient's lab results. Labs: Laboratory Results - last 24 hr 11/16/21 11/16/21 11/16/21 18:21 18:21 18:21 WBC 7.5 RBC 4.86 Hgb 11.2 L Hct 37.9 MCV 78.0 L MCH 23.0 L MCHC 29.6 L RDW Std Deviation 45.4 H RDW Coeff of Seth 16.0 H Plt Count 301 MPV 11.7 Immature Gran % (Auto) 0.400 Neut % (Auto) 54.9 Lymph % (Auto) 34.4 [place] % (Auto) 8.1 Eos % (Auto) 1.7 Baso % (Auto) 0.5 Absolute Neuts (auto) 4.1 Absolute Lymphs (auto) 2.59 Nucleated RBC % 0 Sodium 139 Potassium 3.8 Chloride 106 Carbon Dioxide 29.0 Anion Gap 4 L BUN 14 Creatinine 0.86 Estim Creat Clear Calc 72.65 Est GFR (MDRD) Af Amer 94 Est GFR (MDRD) Non-Af 78 BUN/Creatinine Ratio 16.3 Glucose 141 H Calcium 9.8 Total Bilirubin Direct Bilirubin AST ALT Alkaline Phosphatase Total Protein Albumin Globulin Lipase Serum , Qual NEGATIVE Urine Color Urine Clarity Urine pH Ur Specific [place] Urine Protein Urine Glucose (UA) Urine Ketones Urine Occult Blood Urine Nitrite Urine Bilirubin Urine Urobilinogen Ur Leukocyte Esterase Urine RBC Urine WBC Ur Squamous Epith Cells Urine Bacteria Urine Mucus 11/16/21 11/16/21 18:21 18:26 WBC RBC Hgb Hct MCV MCH MCHC RDW Std Deviation RDW Coeff of Seth Plt Count MPV Immature Gran % (Auto) Neut % (Auto) Lymph % (Auto) [place] % (Auto) Eos % (Auto) Baso % (Auto) Absolute Neuts (auto) Absolute Lymphs (auto) Nucleated RBC % Sodium Potassium Chloride Carbon Dioxide Anion Gap BUN Creatinine Estim Creat Clear Calc Est GFR (MDRD) Af Amer Est GFR (MDRD) Non-Af BUN/Creatinine Ratio Glucose Calcium Total Bilirubin 0.40 Direct Bilirubin 0.10 AST 21 ALT 42 Alkaline Phosphatase 86 Total Protein 7.5 Albumin 3.8 Globulin 3.7 Lipase 108 Serum , Qual Urine Color Yellow Urine Clarity Clear Urine pH 5.0 Ur Specific [place] 1.025 Urine Protein 15 H Urine Glucose (UA) Normal Urine Ketones 5 H Urine Occult Blood Negative Urine Nitrite Negative Urine Bilirubin Negative Urine Urobilinogen Normal Ur Leukocyte Esterase Negative Urine RBC 0 SEEN Urine WBC 0 SEEN Ur Squamous Epith Cells 0-5 SEEN Urine Bacteria 2+ Urine Mucus 0 SEEN Radiography Diagnostic Testing: Clinical Impression(s) from Imaging Studies Abdomen/Pelvis CT 11/16/21 21:25 IMPRESSION: No acute or inflammatory disease or bowel obstruction. Electronically Signed: Amanuel Parada MD at 21:42 EDT , Discharge Plan Triage Chief Complaint: Abd Pain ED Provider: Alessandro Wilson Dx/Rx/DC Orders Clinical Impression: Diffuse abdominal pain, Constipation, Intermittent low back pain Instructions: Abdominal Pain, ED Constipation (Adult) Prescriptions: New dicyclomine 10 mg capsule 20 mg PO Q6H PRN PRN (Reason: abdominal discomfort) Qty: 20 0RF ondansetron [ondansetron] 4 mg tablet,disintegrating 8 mg PO Q8H PRN PRN (Reason: Nausea) Qty: 15 0RF No Action dexamethasone [Decadron] 4 mg tablet 4 mg PO DAILY Qty: 4 0RF omeprazole 40 MG capsule,delayed release(DR/EC) 40 mg PO DAILY hydroxychloroquine 200 MG tablet 200 mg PO DAILY duloxetine 60 MG capsule,delayed release(DR/EC) 60 mg PO DAILY Label Comments: Take 1 capsule(s) every day by oral route in the morning. topiramate 50 mg tablet 150 mg PO DAILY Label Comments: TAKE ONE TABLET BY MOUTH EVERY MORNING AND TWO TABLETS EVERY EVENING Lactobacillus acidophilus 1 EACH capsule 1 ea PO DAILY Biocleanse 1 cap PO DAILY estradiol 2 mg tablet 2 mg PO DAILY Qty: 90 4RF Primary Care Provider: Yen Bhatti Referrals: Yen Bhatti PA [Primary Care Provider] - 3-5 Days if not improving Disposition Disposition: Home, Self Care
== END 2021-11-16 23:13 | disposition home or self-care (01) ==
PROVIDERS: Emergency Provider Emergency Medicine; PCP Physician Assistant; Visit Provider Emergency Medicine
DX: R10.9 Unspecified abdominal pain (principal); M54.50 Low back pain, unspecified; K59.00 Constipation, unspecified; R11.0 Nausea; E66.9 Obesity, unspecified; F41.9 Anxiety disorder, unspecified; Z79.899 Other long term (current) drug therapy
CPT/HCPCS: 74176; 80048; 80076; 81001; 83690; 84703; 85025; 96361; 96374; 96375; 99283; J7030; A4216; J2405

== ENCOUNTER → 2022-03-26 | Outpatient (CLI) | payer OTHER, SELFPAY ==
--- NOTE | 2022-03-26 14:16 | BI_ITS ---
MAMMOGRAPHY - BILATERAL DIAGNOSTIC REASON FOR EXAM: Female, 41 years old. LUMP LEFT BREAST PERTINENT HISTORY: Non-contributory. TECHNIQUE: Digital examination. Mediolateral oblique (MLO) and craniocaudad (CC) views of both breasts were obtained. CAD: CAD was performed on this study. COMPARISON: None. FINDINGS: Breast Composition: There are scattered areas of fibroglandular density. No dominant mass right breast. 1 cm oval obscured equal density mass in the upper outer quadrant of the left breast and ultrasound is recommended for further evaluation. No suspicious calcifications. No other significant abnormalities are identified. BI/DIAG MAMM W/CAD, BILAT IMPRESSION: 1. 1 cm oval equal density mass in the upper-outer quadrant left breast and ultrasound is recommended for further evaluation. 2. No mammographic correlate to the palpable abnormality in the left breast ultrasound will be obtained. ASSESSMENT CATEGORY: BIRADS Category 0: Incomplete. Need additional imaging evaluation. A letter regarding these results will be sent to the patient by the facility within 30 days. FOLLOW UP RECOMMENDATION: Ultrasound Recommended. (I) Approximately 10% of breast cancers are not detected by mammography. A normal mammogram should not delay biopsy of a clinically suspicious abnormality. Electronically Signed: Thiago Funes MD at 16:51 EST ,
--- NOTE | 2022-03-26 14:16 | US_ITS ---
STUDY: ULTRASOUND BREAST - LEFT REASON FOR EXAM: Female, 41 years old. Palpable mass TECHNIQUE: Axial and longitudinal images of the LEFT breast were performed with a high resolution ultrasound transducer. # OF IMAGES: 37 COMPARISON: Diagnostic mammogram earlier today. FINDINGS: LEFT Breast: Heterogeneous background echotexture. At 7 o''clock, 2 cm nipple, in the area the palpable abnormality, ultrasound confirms a 2.5 cm oval parallel microlobulated heterogeneous hypoechoic mass with no posterior features immediately subjacent to the skin and ultrasound-guided vacuum-assisted core biopsy is recommended. At 3 o''clock, 4 cm from nipple, in the area of the mass seen on mammography, ultrasound confirms a 1 cm oval parallel circumscribed anechoic mass consistent with a cyst: US/Breast Limited Unilateral IMPRESSION: 1. Ultrasound confirms a 2.5 cm oval microlobulated heterogeneous hypoechoic mass in the superficial soft tissues corresponding to the patient''s palpable abnormality and ultrasound-guided vacuum-assisted core biopsy is recommended. 2. Ultrasound confirms a 1 cm cyst corresponding to the mass seen on diagnostic mammogram. ASSESSMENT CATEGORY: BIRADS Category 4: Suspicious - Biopsy Should Be Considered. A letter regarding these results will be sent to the patient by the facility within 30 days. Electronically Signed: Thiago Funes MD at 16:55 EST ,
== END | disposition home or self-care (01) ==
LOC: OPBI 14:12
PROVIDERS: PCP Physician Assistant; Visit Provider Obstetrics & Gynecology
DX: R92.2 Inconclusive mammogram (principal); N63.21 Unspecified lump in the left breast, upper outer quadrant
CPT/HCPCS: 76642; 77062; 77066; G0279

== ENCOUNTER → 2022-04-04 | Outpatient (CLI) | payer OTHER, SELFPAY ==
--- NOTE | 2022-04-04 09:30 | BRBX_PTH ---
PATIENT: MAGED CALLAWAY LOC: [facility] U#:[id number] AGE/SX: 41/F ROOM: RE04/04/[address]: Dr. Deepali Antunez MD : 1980 BED: DIS: 04/04/2022 SPEC #: [id number] RECD: 04/04/22 12:08 STATUS: IBETH KRYSTAL #: [id number] EFFIE: 04/04/22 09:[address]: Deepali Antunez DEPT: SURGICAL PATHOLOGY RECD BY: Mira Skelton ENTERED: 04/04/22 13:31 SP TYPE: BREAST BX OTHR DR: MARCUS Samuels Tissues: Left breast, NOS Procedures: Special Stain Group I Surgery Specimen Level IV AFB Stain (control) GMS Stain (control) HEADER OPERATION: Left breast biopsy PRE-OP DIAGNOSIS: Left breast mass at previous incision for breast reduction TISSUE SUBMITTED: Left breast tissue 7 o?clock, 2 cm MICROSCOPIC DIAGNOSIS Left breast at 7 o?clock, 2 cm, core biopsy: Non-necrotizing granulomatous inflammation. Negative for acid-fast bacilli and fungal organisms. Focal polarizable material present. See comment. AM:jace 04/05/2022 COMMENT AFB and GMS stains with matched controls are negative. Case has been reviewed in consultation with Dr. Guillen who concurs with the above diagnosis. IDC:[id number] MICROSCOPIC DESCRIPTION Slides are reviewed. GROSS DESCRIPTION Received in fixative is one container labeled with the patient's name and designated left breast biopsy. The specimen consists of two elongated cores of prasad tissue each with an average length of 1.6 cm and average diameter of 0.2 cm. The specimen is totally submitted in one cassette. / AM:jace 04/04/2022 TC:3 CPT: 97636, 07074 x2
== END | disposition home or self-care (01) ==
LOC: LABSPEC 12:35
PROVIDERS: PCP Physician Assistant; Referring Provider Surgery; Visit Provider Surgery
DX: N63.20 Unspecified lump in the left breast, unspecified quadrant (principal)
CPT/HCPCS: 88305; 88312

== ENCOUNTER → 2022-04-10 | Outpatient (CLI) | payer OTHER, SELFPAY ==
--- NOTE | 2022-04-10 15:05 | US_ITS ---
STUDY: ULTRASOUND BREAST - RIGHT REASON FOR EXAM: Female, 41 years old. Palpable lump in the right breast. TECHNIQUE: Axial and longitudinal images of the RIGHT breast were performed with a high resolution ultrasound transducer. # OF IMAGES: 23 COMPARISON: Comparison is made with prior mammogram dated 03/26/2022. FINDINGS: RIGHT Breast: The inferior aspect of the right breast was examined with ultrasound. There are dilated subareolar ducts. No solid or cystic mass lesion is seen. US/Breast Limited Unilateral IMPRESSION: Dilated retroareolar ducts. No cystic or solid mass is seen. ASSESSMENT CATEGORY: BIRADS Category 2: Benign. A letter regarding these results will be sent to the patient by the facility within 30 days. Electronically Signed: Jeramie Basilio MD at 15:41 EST ,
== END | disposition home or self-care (01) ==
LOC: OPUS 15:03
PROVIDERS: PCP Physician Assistant; Visit Provider Surgery
DX: N63.0 Unspecified lump in unspecified breast (principal)
CPT/HCPCS: 76642

== ENCOUNTER 2022-04-26 06:00 | Day surgery (SDC) | payer OTHER, SELFPAY ==
[2022-04-26] VITALS (8 sets, daily range): BP systolic 133–149; BP diastolic 83–91; PULSE 80–94; RESP 16–18; TEMP 36.6–36.8; O2SAT 90–96; BMI 49.9
[2022-04-26] MEDS: Lactated Ringers 1,000 ML 15 ML IV (06:58)
--- NOTE | 2022-04-26 07:19 | HP.PCM_ITS ---
History and Physical Date of Admission: 04/26/22 Date of Service:? 04/04/22 MR#: [id number] Acct: [id number] Name:MAGED BURGOS Rep #: [id number] : 1980 ? ? Provider: Dr. Deepali Antunez MD Age/Sex:? 41/F ? ? Location: [facility] Status: Signed Intake Vital Signs ? 11/16/2217:04 04/04/2308:35 Height 5 ft 3 in 5 ft 3 in Weight: 289 lb 290 lb 6 oz BMI 51.2 51.4 BP 149/117 H 136/86 H Blood Pressure Location ? Rt radial Position ? Sitting Respiration 18 18 Pulse 102 H 84 Pulse Source ? NIBP Temp 97.5 F L 97.2 F L Temp Source Temporal Temporal Pulse Oximetry (%) 98 99 Oxygen Delivery Method ? room air Intake Visit Reasons:?LEFT BIRADS 4 Chief Complaint: abn mammo left Business Practices Officer Required: No Is patient in pain?: No Allergies metaxalone [From Skelaxin] Allergy (Verified 04/04/22 09:23) Unknownsumatriptan [From Imitrex] Allergy (Verified 04/04/22 09:23) Unknownamoxicillin [From Augmentin] Adverse Reaction (Verified 04/04/22 09:23) Nausea/Vom/Diarrheaclavulanic acid [From Augmentin] Adverse Reaction (Verified 04/04/22 09:23) Nausea/Vom/Diarrhea Medications duloxetine 60 mg capsule,delayed release 60 mg PO DAILY 01/14/18 [History Confirmed 04/04/22] hydroxychloroquine 200 mg tablet 200 mg PO DAILY 01/14/18 [History Confirmed 04/04/22] omeprazole 40 mg capsule,delayed release 40 mg PO DAILY 01/14/18 [History Con firmed 04/04/22] Biocleanse 1 cap PO DAILY 06/15/18 [History Confirmed 04/04/22] Lactobacillus acidophilus 10 billion cell capsule 1 ea PO DAILY 06/15/18 [History Confirmed 04/04/22] topiramate 50 mg tablet 150 mg PO DAILY 06/27/20 [History Confirmed 04/04/22] estradiol 2 mg tablet 2 mg PO DAILY #90 tabs 09/11/20 [Rx Confirmed 04/04/22] dexamethasone 4 mg tablet (Decadron) 4 mg PO DAILY #4 tabs 04/23/21 [Rx Confirmed 04/04/22] dicyclomine 10 mg capsule 20 mg PO Q6H PRN PRN abdominal discomfort #20 CAPSULES 11/16/21 [Rx Confirmed 04/04/22] ondansetron 4 mg disintegrating tablet 8 mg PO Q8H PRN PRN Nausea #15 tabs 11/16/21 [Rx Confirmed 04/04/22] Is last menstrual period known: No Post menopausal: No Patient : No PFSH Medical History?(Updated 04/04/22 @ 10:[address] Deepali Antunez MD) Alcohol use Anemia Anxiety COVID-19 Easy bruising Encounter for screening for COVID-19 Fibromyalgia Gallbladder Removal (~2009) Gastric reflux History of edema History of IBS History of stress test Hx of echocardiogram Migraine headache Non-smoker Rheumatoid arthritis Surgical History?(Updated 04/04/22 @ 09:49 by Adelaida Puentes) History of cholecystectomy (~2009) History of lumbar surgery (~2016) History of right breast biopsy (~2004) History of salpingectomy Hx of breast reduction, elective (~2006) Hx of tonsillectomy Family History?(Updated 04/04/22 @ 09:49 by Adelaida Puentes) Brother AsthmaFather Hypertension Social History? Smoking Status:? Never smoker HPI HPI HPI: 41-year-old female presents due to abnormal mammogram and ultrasound as patient felt small mass in the left breast about 7:00 along the previous breast reduction incision on self-exam.? Patient underwent her first mammogram given a BI-RADS 0, ultrasound of the left breast showed a hypoechoic 2.5 cm lesion given a BI-RADS 4, as well as left breast cyst.? Patient previously had breast reduction in 2006.? Patient denies any pain at this area.? Patient age at time of of first child 29, no family history of breast cancer, 1 previous breast biopsy?benign ROS General General: Yes fatigue; No weight change, appetite, colon cancer, breast cancer or weakness HEENT HEENT: No difficulty swallowing, eye injury, eye surgery, swollen glands or hoarseness Endo Endocrine: Yes diabetes mellitus; No thyroid disease, thyroid cancer, Hair loss, heat intolerance or cold intolerance Breast Breast: Yes left breast lump, abnormal mammogram and abnormal US; No right breast lump, nipple discharge, breast pain or breast enlargement Musc Musculoskeletal: Yes rheumatoid arthritis; No back problems, arthritis, gout or joint pain Cardio Cardiovascular: No murmur, pacemaker, heart disease, atrial fibrillation, high blood pressure, heart attack, heart stent, palpitations, shortness of breat with exertion or chest pain Psych Psychiatric: Yes anxiety; No depression or hearing voices Resp Respiratory: No shortness of breath, No sleep apnea, No cough, No COPD, No asthma, No emphysema and No wheezing Gastro Gastrointestinal: No abdominal pain, No nausea or vomiting, No diarrhea, No constipation, No blood in stool, Yes acid reflux, No hemorrhoids, No ulcers, No gallbladder problem and No black,tarry stools Oneil Hematologic: No blood thinners, No blood disorders, No bleeding, No anemia and No blood clots Neuro Neurologic: No weakness Exam Const General: cooperative, healthy appearing and no acute distress HENMD Head: normal to inspection Chest Other: Breast inspection: Symmetric bilaterally?incisions of previous breast reduction well-healed Right breast: Fibroglandular breast tissue, no masses, nontender Left breast: Palpable about 1 cm mass 7:00 2 cm from the nipple at the areolar border near patient's incision from her previous breast reduction.? Nontender, no other masses on exam. No axillary or supraclavicular adenopathy bilaterally Resp Effort & Inspection: normal respiratory effort Cardio Rate: regular rate GI Inspection: non-distended Palpation: soft and nontender Skin General: no rashes or lesions noted Neuro General: patient oriented x3 Extrem General: no clubbing, cyanosis or edema Psych Affect: anxious affect Office Procedures Biopsy Provider Documentation Reviewed the ultrasound and mammography with patient and discussed the need for biopsy.? Reviewed the procedure of biopsy with a core biopsy device.? A marker clip will be placed to identify the location.? Patient has been counseled to the risks/benefits of the procedure. ? I have explained the risks of the surgery, including but not limited to: infection, bleeding,? injury to any blood vessels/nerves, scar tissue, missing the lesion, further surgery, etc. - the patient understands and agrees to proceed. I have answered all of the patient's questions to her satisfaction and she has no further questions.? Signed consent is completed. Procedure: ultrasound-guided core biopsy Description of procedure: Patient was brought into the ultrasound room in the left breast was marked.? A timeout was completed verifying correct patient, procedure, site, specially, prior to beginning procedure.? The left breast was prepped and draped in usual sterile fashion and using local anesthesia was obtained with 1% lidocaine with epi.? The lesion was located with the ultrasound at 7:00 2 cm from nipple.? Small incision was made with 11 blade to introduced the BARD MaxCore through the skin.? Under ultrasound guidance multiple core samples were obtained using then 14-gauge BARD MaxCore and sent in formalin for pathology.? The Bard dual ultra-clip was then deployed into the biopsy cavity under ultrasound guidance and a picture was taken. Upon completion procedure hemostasis was obtained and a Steri-Strip and OpSite were placed.? The patient tolerated the procedure well and left the office in good condition. Alert José Antonio Yes Biopsy Breast Biopsy: 46136 US Guidance Procedure Time Out Time Out Informed consent given: Yes Consent signed: Yes Time out checklist: patient, procedure, site marked/identified, positioning of patient, supplies available, allergies confirmed and team agrees on procedure Time out staff in room: Yes Time out verified: Yes Time out date: 04/04/22 Time out time: 09:30 Assessment and Plan Assessment and Plan (1) Breast mass, left: ?Status:?Acute Plan Patient tolerated breast biopsy well in office.? Discussed with patient that if it does just show up dense breast tissue on biopsy would probably recommend excisional biopsy as even if this could be just dense breast tissue from previous surgery as it is at an incision he will continue to show up on screening mammography in the future and so it may be best just to excise it.? Patient seemed agreeable with plan.? Will call patient with pathology results and schedule excision at that time as well.? Patient no further questions at this time. Deepali Antunez M.D. Pager: [phone] [facility] [address] [place] [address], [address] [place] [address] Office: [phone] Coding Level of Care Code Attention Route Sales Trainee Diagnoses Breast mass, left? N63.20 CPT Codes Biopsy - Breast Biopsy: 02085 US Guidance (26280) 04/04/22 1137 <Electronically signed by Deepali Antunez MD> Date Deepali Antunez MD
[2022-04-26 07:25] LABS: Bedside Glucose 146 mg/dL (74-106)
--- NOTE | 2022-04-26 07:30 | BR_PTH ---
PATIENT: MAGED CALLAWAY LOC: [facility] U#:[id number] AGE/SX: 41/F ROOM: RE04/26/[address]: Dr. Deepali Antunez MD : 1980 BED: DIS: 04/26/2022 SPEC #: [id number] RECD: 04/26/22 10:00 STATUS: IBETH RECeferino #: [id number] EFFIE: 04/26/22 07:[address]: Deepali Antunez DEPT: SURGICAL PATHOLOGY RECD BY: Mira Skelton ENTERED: 04/26/22 10:31 SP TYPE: MAMOPLASTY OTHR DR: MARCUS Samuels Tissues: Left breast, NOS Procedures: Special Stain Group I Surgery Specimen Level IV AFB Stain (control) GMS Stain (control) HEADER OPERATION: Left breast ultrasound-guided excisional biopsy PRE-OP DIAGNOSIS: Left breast mass TISSUE SUBMITTED: Left breast tissue biopsy, long stitch ? lateral, short stitch - superior MICROSCOPIC DIAGNOSIS Left breast, excisional biopsy: Extensive non-necrotizing granulomatous inflammation. Focal fibrosis with associated granulation. Skin with no pathologic change. Negative for acid-fast bacilli and fungal organisms. Changes of previous biopsy. See comment. AM:jace 04/29/2022 COMMENT AFB and GMS stains with matched controls were used in the evaluation of this case. Reference is made to the patient's previous left breast biopsy ([id number]) in which non-necrotizing granulomatous inflammation and non-polarizable material was identified. Case has been reviewed in consultation with Dr. Guillen who concurs with the above diagnosis. IDC:SJ MICROSCOPIC DESCRIPTION Slides are reviewed. GROSS DESCRIPTION Received in fixative is one container labeled with the patient's name and designated left breast tissue. The specimen consists of an oriented fragment of pink-prasad soft tissue measuring 1.7 x 1.6 x 0.8 cm. An ellipse of unremarkable skin measuring 1.5 x 0.5 cm is present on the anterior surface. The specimen is differentially inked as follows: medial - red, lateral - black, superior - yellow, and inferior - blue. Serial sections do not reveal a mass lesion. The specimen is serially sectioned along its long axis and totally submitted in two cassettes. / SHYANNE:jace 04/26/2022 TC:3 CPT: 21394, 46051 x2
--- NOTE | 2022-04-26 08:11 | PCM.OPRPT ---
Report of Operation Date of Procedure: 04/26/22 Pre-Operative Diagnosis: Left breast mass Post-Operative Diagnosis: Same Surgery/Procedure Performed:: Ultrasound-guided wire localization left breast mass Surgeon: Deepali Antunez Type of Anesthesia: General/Supplemental Anesthesiologist: Melquiades Torres Special Medications: Ancef 3 g IV x1 Specimen's removed: Left breast mass at areolar border Estimated Blood Loss (mL): <10 cc Description of Procedure: Patient brought to operating placed supine on operating table. Timeout was completed verifying correct patient, procedure, site, positioning, special equipment prior to beginning procedure. General anesthesia was induced. Left breast was prepped draped in usual sterile fashion. Ultrasound-guided wire localization using the Kopan's needle was done to identify previous place clip. A curvilinear incision was made at the areolar border at 6:00 with a 15 blade scalpel minimizing amount of dissection to excise the mass. The wire was identified inferior to the mass and the mass including the wire and clip were removed. The clip was visualized thus this was not sent to x-ray for confirmation of the clip. Specimen including the clip and the wire were sent to pathology. Hemostasis was achieved with electrocautery. Incision was irrigated with saline. Incision was closed with interrupted 3-0 Vicryl sutures. Skin was closed with running 4-0 Monocryl and Dermabond. Surgical bra was placed. Patient tolerated procedure well was taken to the postanesthesia care in stable condition. Complications none
--- NOTE | 2022-04-26 08:13 | DCINST_ITS ---
Discharge Instructions Diet Discharge Diet: No restrictions Activity Discharge Activity: May Not Drive (for 2-3 days or while taking narcotic pain meds.) May shower in (days): 1 Lifting Restrictions: 10 pounds for 1 week. Dressing / Incision Call your doctor if your incision/area has: Continuous Slow Oozing, Sudden Increased Bleeding, Increased Pain/ Swelling and Increased Redness Call your doctor if you observe: Fever of 101 or Higher Suture Line Care: Avoid Pulling/Pushing and Avoid Pinching/Bending Remove Dressing in: 1 day Additional Dressing/Incision Instructions:: Dermabond (glue) was used -this may start to peel off in about 5 days. Follow Up Care Please Follow Up With: Deepali Antunez MD When: Please call [phone] for an appointment to be seen in 2 week. Test Results: Test results from this visit will be discussed in further detail at your follow- up appointment, if applicable. Discharge Plan Admission Attending Provider: Deepali Antunez Primary Care Provider: Yen Bhatti Discharge Orders/Prescriptions Prescriptions: New oxycodone-acetaminophen 5-325 mg tablet 1 tab PO Q6H PRN (Reason: pain) 2 Days Qty: 5 0RF Continued Lactobacillus acidophilus 1 EACH capsule 1 ea PO DAILY estradiol 2 mg tablet 2 mg PO DAILY Qty: 90 4RF metformin 500 mg Tablet 500 mg PO BID sertraline [Zoloft] 100 mg Tablet 100 mg PO DAILY leflunomide [Arava] 20 mg Tablet 20 mg PO DAILY pantoprazole [Protonix] 40 mg Tablet,Delayed Release (Dr/Ec) 40 mg PO DAILY Referrals / Follow Up: Yen Bhatti PA [Primary Care Provider] - Disposition Disposition (needs filled in before D/C Order can be placed): Home, Self Care
[2022-04-26 09:21] LABS: Bedside Glucose 141 mg/dL (74-106)
[2022-04-26] MEDS: oxyCODONE 5 MG Tablet PO (10:19)
== END 2022-04-26 10:46 | disposition home or self-care (01) ==
LOC: SDC 06:02 → AC 06:03
PROVIDERS: PCP Physician Assistant; Referring Provider Surgery; Visit Provider Surgery
PROC: (CPT 19125; principal; 2022-04-26 07:15)
DX: N60.32 Fibrosclerosis of left breast (principal); M06.9 Rheumatoid arthritis, unspecified; Z79.899 Other long term (current) drug therapy
CPT/HCPCS: 19125; 00400; 82962; 88305; 88312; J7120; J2405

== ENCOUNTER 2024-02-25 10:36 | Emergency (ER) | payer OTHER, SELFPAY ==
[2024-02-25 10:37] VITALS: BP 140/93; PULSE 85; RESP 19; TEMP 36.4; O2SAT 97; BMI 42.2
--- NOTE | 2024-02-25 10:53 | EDS_ITS ---
HPI HPI - GI History of Present Illness Chief Complaint: Dizziness Informant: patient Abdominal Pain/Flank Pain Onset: Today Context: Sudden Onset Timing: Continuous Quality: Aching and Stabbing Location: Diffuse Worsened by: Nothing Relieved by: - (Zofran) Nausea/Vomiting/Emesis GI Symptom: Positive for Nausea and Vomiting Diarrhea/Melena/Hematochezia GI Symptom: Positive for Diarrhea; Negative for Melena or Hematochezia Stool Quality: Positive for Loose Associated Symptoms Associated Symptoms: Negative for Dysuria, Frequency or Hematuria LMP: Hysterectomy approximately 2 years ago Narrative Narrative: Patient presents with abdominal pain that began this morning. Patient states her pain is diffuse across her entire abdomen. Patient states it started out as a stabbing pain. Patient is now more of a aching pain. Patient states it is diffuse across her abdomen but worse on the right side. Patient admits to some nausea and vomiting. Patient denies any hematemesis or coffee-ground emesis. Patient admits to some diarrhea but denies any melena or hematochezia. Patient states she has some tingling in her hands, feet, and face. Patient admits to some subjective chills but denies any fevers. [facility] Medical History Diabetes Low iron Excessive bleeding Leg cramps History of irregular heartbeat COVID-19 Encounter for screening for COVID-19 Alcohol use Anxiety Rheumatoid arthritis Easy bruising Migraine headache History of IBS Gastric reflux Non-smoker Hx of echocardiogram History of stress test Gallbladder Removal (~2009) Fibromyalgia Home Medications ?Medication ?Instructions ?Recorded ?Last Taken ?Type Lactobacillus acidophilus 10 1 ea PO DAILY 06/15/18 Unknown History billion cell capsule estradiol 2 mg tablet 2 mg PO DAILY #90 tabs 09/11/20 Unknown Rx leflunomide 20 mg tablet (Arava) 20 mg PO DAILY 04/24/22 04/26/22 05:10 History metformin 500 mg tablet 500 mg PO BID 04/24/22 Unknown History pantoprazole 40 mg tablet,delayed 40 mg PO DAILY 04/24/22 04/26/22 05:10 History release (Protonix) sertraline 100 mg tablet (Zoloft) 100 mg PO DAILY 04/24/22 04/26/22 05:10 History oxycodone-acetaminophen 5 mg-325 1 tab PO Q6H PRN pain 2 days #5 04/26/22 Unknown Rx mg tablet tabs alprazolam 0.5 mg tablet 0.25 - 0.5 mg PO Q8H PRN PRN 02/25/24 Unknown History anxiety buspirone 5 mg tablet 5 mg PO BID 02/25/24 Unknown History ondansetron 4 mg disintegrating 4 mg PO Q8H PRN PRN Nausea #10 tabs 02/25/24 Unknown Rx tablet Allergy/AdvReac Type Severity Reaction Status Date / Time metaxalone (From Skelaxin) Allergy Unknown Verified 02/25/24 10:40 sumatriptan (From Imitrex) Allergy Unknown Verified 02/25/24 10:40 amoxicillin (From Augmentin) AdvReac Nausea/Vom/ Verified 02/25/24 10:40 Diarrhea clavulanic acid (From AdvReac Nausea/Vom/ Verified 02/25/24 10:40 Augmentin) Diarrhea Family History Brother Asthma Father Hypertension Surgical History History of breast lump/mass excision S/P breast biopsy, left Hx of hysterectomy History of cholecystectomy (~2009) History of salpingectomy Hx of breast reduction, elective (~2006) Hx of tonsillectomy History of lumbar surgery (~2016) Social History Smoking Status: Never smoker ROS ROS ED Constitutional Constitutional ED: Reports chills and subjective; Denies fever(s) Eyes Eyes: Reports blurry vision ENT ENT ED: Denies rhinorrhea or sore throat Cardiovascular Cardiovascular: Denies chest pain or palpitations Respiratory/Chest Respiratory/Chest: Denies cough or dyspnea Gastrointestinal Gastrointestinal: Reports abdominal pain, diarrhea, nausea and vomiting; Denies melena Genitourinary Genitourinary ED: Denies dysuria or hematuria Musculoskeletal Musculoskeletal: Reports back pain; Denies neck pain Integumentary Denies abscess or rash Neurologic Neurologic: Reports headache(s); Denies weakness Allergic/Immunologic Allergic/Immunologic ED: Denies mouth swelling or urticaria EXAM Physical Exam Const Vital Signs: 02/25/24 10:37 02/25/24 12:52 Temperature 97.5 F L 97.4 F L Temperature Source Temporal Oral Pulse Rate 85 94 Respiratory Rate 19 H 16 Blood Pressure 140/93 H 134/95 H Blood Pressure Mean 108 108 Pulse Ox 97 97 Oxygen Delivery Method Room Air Room Air Positive well nourished and well developed General Appearance ED: well developed and NAD HEENT Reports moist mucous membranes Eyes PERRL and EOMs intact bilaterally Neck supple and no JVD Resp normal respiratory effort and clear to auscultation bilaterally Cardio regular rate and regular rhythm GI non-distended Palpation: soft and tender epigastric, RLQ and RUQ; Negative for guarding or rebound tenderness present Extremity full ROM Neuro CN's II-XII intact bilaterally, moves all extremities and no sensory deficits noted Sensorium / Orientation: alert Motor Exam: strength 5/5 throughout Psych mental status grossly normal MDM MDM MDM Narrative Medical decision making narrative: Differential diagnosis includes gastroenteritis, electrolyte abnormality, dehydration, colitis, appendicitis, and ureteral calculus. CBC will be obtained to assess for leukocytosis and anemia. Comprehensive metabolic profile will be obtained to assess for hepatic function, renal function, and electrolyte abnormality. Lipase will be obtained to assess for pancreatitis. Urinalysis will be obtained to assess for urinary tract infection and hematuria. CT scan of the abdomen pelvis will be obtained to assess for bowel obstruction, perforation, colitis, appendicitis, and ureteral calculus. Lab Data Attestation: I reviewed the patient's lab results. Lab results narrative: CBC was reviewed and was within normal limits. Comprehensive metabolic profile was reviewed and was within normal limits. Lipase was reviewed and was normal. Labs: Laboratory Results - last 24 hr 02/25/24 11:32 WBC 8.3 RBC 5.40 Hgb 14.1 Hct 42.3 MCV 78.3 L MCH 26.1 L MCHC 33.3 RDW Std Deviation 42.8 RDW Coeff of Seth 15.3 H Plt Count 268 MPV 12.3 H Immature Gran % (Auto) 0.500 Neut % (Auto) 83.1 H Lymph % (Auto) 10.1 L [place] % (Auto) 5.5 Eos % (Auto) 0.4 Baso % (Auto) 0.4 Absolute Neuts (auto) 6.9 Absolute Lymphs (auto) 0.84 Nucleated RBC % 0 Sodium 138 Potassium 4.0 Chloride 109 H Carbon Dioxide 23.0 Anion Gap 7 BUN 12 Creatinine 0.83 Estim Creat Clear Calc 109.07 Est GFR (MDRD) Af Amer 97 Est GFR (MDRD) Non-Af 81 BUN/Creatinine Ratio 14.5 Glucose 116 H Calcium 10.0 Total Bilirubin 0.70 AST 30 ALT 45 Alkaline Phosphatase 92 Total Protein 7.8 Albumin 4.3 Globulin 3.5 Albumin/Globulin Ratio 1.2 Lipase 48 Radiography Diagnostic Testing: Clinical Impression(s) from Imaging Studies Abdomen/Pelvis CT 02/25/24 11:22 IMPRESSION: 1. Mild diffuse hepatic steatosis. 2. No bowel obstruction or acute abnormality in the abdomen and pelvis. 3. No significant interval change. Electronically Signed: Larry Bhatt MD at 13:08 EST , CT scan of the abdomen pelvis was obtained. There is no evidence of obstruction. There is no free air or free fluid. There is no acute abnormality noted. The appendix was visualized and was normal. This was interpreted by the radiologist and was also independently reviewed by myself. Treatment and Re-Evaluation :: Patient given IV fluids and morphine. Patient was feeling better on reevaluation. Patient was advised of her findings. Patient was given prescription for Zofran. Patient was instructed to start with a liquid diet and advance as tolerated. Patient was instructed to follow-up with her primary care physician in 5 to 7 days. Patient was instructed return if worse in any way. Patient and family understood and were agreeable with the plan. All questions were answered. Discharge Plan Triage Chief Complaint: Dizziness Other Complaint: Abd Pain Nausea/Vomiting ED Provider: Melquiades Sumner Dx/Rx/DC Orders Clinical Impression: Abdominal pain, Rheumatoid arthritis, History of depression Instructions: ED Abdominal Pain Unkn Cause Fem, ED Vomit Diarrhea Nonspec Adult Prescriptions: New ondansetron 4 mg tablet,disintegrating 4 mg PO Q8H PRN PRN (Reason: Nausea) Qty: 10 0RF No Action Lactobacillus acidophilus 1 EACH capsule 1 ea PO DAILY estradiol 2 mg tablet 2 mg PO DAILY Qty: 90 4RF metformin 500 mg Tablet 500 mg PO BID sertraline [Zoloft] 100 mg Tablet 100 mg PO DAILY leflunomide [Arava] 20 mg Tablet 20 mg PO DAILY pantoprazole [Protonix] 40 mg Tablet,Delayed Release (Dr/Ec) 40 mg PO DAILY oxycodone-acetaminophen 5-325 mg tablet 1 tab PO Q6H PRN (Reason: pain) 2 Days Qty: 5 0RF buspirone 5 mg tablet 5 mg PO BID alprazolam 0.5 mg tablet 0.25 - 0.5 mg PO Q8H PRN PRN (Reason: anxiety) Primary Care Provider: Dave Lee Referrals: Yen Bhatti PA [Non-Staff] - 5-7 Days Print Language: Tongan Disposition Disposition: Home, Self Care
--- NOTE | 2024-02-25 11:22 | CT_ITS ---
EXAM: CT ABDOMEN AND PELVIS WITH INTRAVENOUS CONTRAST CLINICAL INDICATION: Abdominal pain with nausea, vomiting and diarrhea. TECHNIQUE: Helically acquired images were obtained of the abdomen and pelvis with intravenous contrast. This CT exam was performed using one or more of the following dose reduction techniques: automated exposure control, adjustment of the mA and/or kV according to patient size, and/or use of iterative reconstruction technique. CONTRAST: IV 100mL [id number] RADIATION DOSE: CTDIvol = 17.00 mGy, DLP = 1362.02 mGy-cm COMPARISON: CT abdomen and pelvis without contrast 11/16/2021. FINDINGS: LOWER THORAX: Unremarkable. Lung bases are clear. No cardiomegaly. No significant pericardial effusion. ABDOMEN: LIVER: Mild diffuse fatty infiltration of liver. GALLBLADDER AND BILE DUCTS: No visible gallbladder and no visible surgical clips or sutures. This is presumably from laparoscopic cholecystectomy. No intrahepatic or extrahepatic biliary ductal dilatation. PANCREAS: Unremarkable. No focal cystic or solid mass. SPLEEN: Unremarkable. Normal size without focal cystic or solid mass. ADRENALS: Unremarkable. No nodules. KIDNEYS AND URETERS: Unremarkable. Normal renal size and position. No hydronephrosis. STOMACH AND BOWEL: Unremarkable. No stomach or bowel distention. No focal inflammatory change. PELVIS: APPENDIX: Normal. BLADDER: Unremarkable. No suspicious abnormality of the nearly empty urinary bladder. 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 ABDOMEN and PELVIS: INTRAPERITONEAL SPACE: Unremarkable. No ascites or other fluid collection. No free air. BONES/JOINTS: Metallic rods and pedicular screws at L5-S1 disc space level and the disc implant inside the disc space with anterior metallic anchor causing streak artifacts. No acute fractures or remote fractures of the lumbar spine. No acute osseous abnormality in the abdomen and pelvis. No suspicious lytic or blastic abnormality. SOFT TISSUES: Unremarkable. No discrete abdominal or pelvic wall hernia. VASCULATURE: Unremarkable. Abdominal aorta is non-dilated. LYMPH NODES: Unremarkable. No enlarged lymph nodes. CT/Abdomen/Pelvis W IV Cont ONLY IMPRESSION: 1. Mild diffuse hepatic steatosis. 2. No bowel obstruction or acute abnormality in the abdomen and pelvis. 3. No significant interval change. Electronically Signed: Larry Bhatt MD at 13:08 EST ,
[2024-02-25] MEDS: Ondansetron 4 MG/2 ML Vial IV (11:40)
[2024-02-25] MEDS: Morphine 4 MG/ML Syringe IV (11:40)
[2024-02-25] MEDS: 0.9% Normal Saline (1000mL) 1,000 ML 999 ML IV (11:40)
[2024-02-25 11:43] LABS: Absolute Lymphocyte Count 0.84 X10^3/uL (0.83-4.51); Absolute Neutrophil Count 6.9 X10^3/uL (2.0-7.7); Basophil# 0.03 X10^3/uL; Basophil% 0.4 % (0-1); Eosinophil# 0.03 X10^3/uL; Eosinophils% 0.4 % (0-5); Hematocrit 42.3 % (37-47); Hemoglobin 14.1 g/dL (12.0-15.0); Lymphocyte # 0.84 X10^3/ul (0.83-4.51); Lymphocyte % 10.1 % (19-41); Mean Corp Hgb Conc 33.3 g/dL (32-36); Mean Corpuscular Hgb 26.1 pg (27.0-32.0); Mean Corpuscular Volume 78.3 fL (81-99); Mean Platelet Vol. 12.3 fl (6.2-12.0); Monocyte# 0.46 X10^3/uL; Monocyte% 5.5 % (0-10); NRBC Flagged by Analyzer 0 % (0-5); Neutrophil # 6.91 X10^3/uL (2.7-7.7); Neutrophil % 83.1 % (47-70); Platelet Count 268 K/mm3 (150-450); RBC Distribution Width CV 15.3 % (11.6-14.6); RBC Distribution Width SD 42.8 fl (35.1-43.9); White Blood Count 8.3 K/mm3 (4.4-11.0)
[2024-02-25 12:03] LABS: ALB/GLOB Ratio 1.2 RATIO (0.9-2.4); AST(SGOT) 30 U/L (15-37); Alanine Aminotransfer ALT/SGPT 45 U/L (13-56); Albumin, Serum 4.3 g/dL (3.2-5.0); Alkaline Phosphatase 92 U/L (45-117); Anion Gap 7 (5-15); BUN 12 mg/dL (7-18); BUN/Creat Ratio 14.5 RATIO (10-20); Chloride 109 mmol/L (98-107); Creatinine, Serum 0.83 mg/dL (0.55-1.02); EST Glomerular Filtration Rate 81 mL/min (>60); Est Glom Filt Rate - Afr Amer 97 mL/min (>60); Estimated Creatinine Clearance 109.07 ml/min; Globulin 3.5 g/dL (2.2-4.2); Glucose 116 mg/dL (74-106); Lipase 48 U/L (13-75); Protein, Total 7.8 g/dL (6.4-8.2); Sodium Level 138 mmol/L (136-145)
[2024-02-25 12:52] VITALS: BP 134/95; PULSE 94; RESP 16; TEMP 36.3; O2SAT 97
[2024-02-25] MEDS: Dicyclomine 20 MG/2 ML Vial IM (12:53)
[2024-02-25 13:41] VITALS: BP 144/90; PULSE 94; RESP 22; TEMP 36.6; O2SAT 99
== END 2024-02-25 14:11 | disposition home or self-care (01) ==
PROVIDERS: Emergency Provider Emergency Medicine; PCP Physician Assistant; Visit Provider Emergency Medicine
DX: R10.9 Unspecified abdominal pain (principal); M06.9 Rheumatoid arthritis, unspecified; E11.9 Type 2 diabetes mellitus without complications; R11.2 Nausea with vomiting, unspecified; R19.7 Diarrhea, unspecified; R42 Dizziness and giddiness; K21.9 Gastro-esophageal reflux disease without esophagitis; Z79.899 Other long term (current) drug therapy; R51.9 Headache, unspecified; M54.9 Dorsalgia, unspecified; F32.A Depression, unspecified
CPT/HCPCS: 74177; 80053; 83690; 85025; 96361; 96372; 96374; 96375; 99285; J7030; Q9967; A4216; J2405